=== PATIENT | male | born 1980 | race Caucasian/White ===

== ENCOUNTER 2021-08-08 16:59 | Emergency (ER) | payer OTHER, SELFPAY ==
--- NOTE | ~2021-08-08 | US_ITS ---
EXAMINATION: US VENOUS WITH DOPPLER UPPER EXTREMITY, LEFT CLINICAL INFORMATION: Swelling. Abscess. COMPARISON: None TECHNIQUE: Ultrasound of the upper extremity is performed using compression sonography and color and pulse Doppler flow with assessment of augmentation of flow. There is also imaging and Doppler assessment of the jugular and subclavian veins. Spectral analysis with color-flow imaging is performed. FINDINGS: Respiratory variation, normal compression, and augmented flow are noted throughout the upper extremity including the axillary, brachial, cubital, and radial and ulnar veins. There is normal flow in the internal jugular and subclavian veins. There is no visible deep or superficial thrombophlebitis. If the patient's symptoms progress, a followup ultrasound in 5 -7 days might be of value to exclude proximal propagation from a nonvisualized distal arm vein. US/US venous duplex UE LT IMPRESSION: No DVT demonstrated in the left upper extremity. There is no abnormality seen in the area of redness.
--- NOTE | ~2021-08-08 | US_ITS ---
EXAMINATION: US VENOUS ULTRASOUND WITH DOPPLER LOWER EXTREMITY, RIGHT CLINICAL INFORMATION: Right lower extremity swelling. COMPARISON: None. TECHNIQUE: Ultrasound of the deep veins is performed from the hip to the calf with compression sonography and color and pulse Doppler assessment. Spectral analysis with color-flow imaging is performed. FINDINGS: The visualized common femoral vein, superficial femoral vein, profunda femoral vein, popliteal vein, and the trifurcation region shows no evidence of deep venous thrombosis. The patient could not tolerate pain in the right inguinal region and compressibility of the common femoral vein and origin of the great saphenous vein was not assessed. However, these veins are patent on color Doppler. Similarly, the compressibility of the distal right femoral vein was not assessed however it is patent on color Doppler. There is no significant popliteal fossa cyst. If the patient's symptoms persist, followup ultrasound in 5 days 7 days might be of value to exclude proximal propagation from a non-visualized calf vein. US/US venous duplex LE RT IMPRESSION: No DVT demonstrated in the right lower extremity with the caveat of some limitations when evaluating compressibility due to patient's pain as above.
[2021-08-08 17:21] VITALS: BP 140/95; PULSE 98; RESP 20; TEMP 36.3; O2SAT 100; BMI 37.6
--- NOTE | 2021-08-08 17:45 | ED.SKABFB ---
HPI - Skin/Abscess/Foreign Bdy General Chief complaint: Skin/Abscess/Foreign Body Stated complaint: abscess on L bicep Time Seen by Provider: 08/08/21 17:35 Source: patient Mode of arrival: ambulatory Limitations: no limitations History of Present Illness HPI narrative: 40-year-old male past medical history significant for cocaine use disorder (IV) presenting to the emergency department concerns of an abscess to the left arm progressively worsening over the past week, and pain and swelling to the right lower extremity x1 week. Patient tell me that where the abscess is on his left upper extremity he has not shot. He tells me he uses clean needles each time. Also reports pain and swelling to the right lower extremity, progressively worsening, he tells me has shot up a few times in his right lower extremity however not at the site where it hurts. Patient denies fevers, chills, nausea, vomiting, chest pain, shortness of breath, weakness, headache, dizziness. No history of MRSA MD complaint: abscess/boil Onset (ago): week(s) (1) Tetanus up to date: unsure Location: LUE and RLE Severity: severe Quality: constant Pain Consistency: constant Relieving factors: none Exacerbating factors: none Context: none Associated symptoms: denies other symptoms Treatments prior to arrival: none Related Data Previous Rx's Medication Instructions Recorded cephalexin 500 mg tablet 500 mg PO Q6H 10 Days #40 tab 08/08/21 doxycycline hyclate 100 mg capsule 100 mg PO BID 10 Days #20 cap 08/08/21 Allergies Allergy/AdvReac Type Severity Reaction Status Date / Time No Known Allergies Allergy Verified 08/08/21 17:21 Review of Systems Review of Systems: Constitutional : No Fever, No Chills, Cardiovascular : No Chest Pain, No SOB Respiratory : No Dyspnea Gastrointestinal : No abdominal pain Musculoskeletal : No Joint Swelling Skin : No rash, No skin laceration, + abcess Neuro : No Weakness, No Numbness Psych : No SI/HI Yes all other systems are reviewed and are negative PMFSH Past Medical History Attestation statement: The following information was validated with the patient. Source: old records reviewed and nursing notes reviewed Social History Social History Advance Directives: No Advance Directives Information Provided: No Physical Exam Vital Signs: Vital Signs: Last Vital Signs Temp 97.4 F 08/08/21 17:21 Pulse 98 08/08/21 17:21 Resp 20 08/08/21 17:21 BP 140/95 H 08/08/21 17:21 Pulse Ox 100 08/08/21 17:21 BMI result Body Mass Index 37.6 VSS Appearance: Alert.? Oriented X3.? No acute distress.? Head: Normocephalic, atraumatic, no step-offs or deformities Eyes: Pupils equal, round and reactive to light.? ENT: Pharynx normal.? Neck: Normal inspection.? Neck supple.? CVS: Normal heart rate and rhythm.? Pulses normal.? Respiratory: No respiratory distress.? Breath sounds normal.? Abdomen: Soft and nontender.? Skin: Skin warm and dry.? Normal skin color.? Normal skin turgor.?+ abcess to LUE Extremities: + 3+ non pitting edema b/l. . No calf ttp, negative cali b/l. 5/5 strength to bilateral upper and lower extremities Back: No midline tenderness, no C-spine tenderness, full range of motion, no CVA tenderness bilaterally Neuro: Oriented X 3.? No motor deficit.? No sensory deficit. Course Reevaluation(s) Reevaluation #1: CBC within normal limits. No acute electrolyte abnormalities. Lactic acid negative. Ethanol negative. COVID negative. Ultrasound pending. Patient has been continuously going to the bathroom for long periods of time throughout his visit. Time: 19:40 Reevaluation #2: Venous duplex of the right lower extremity with no DVT. Patient's study was limited due to patient not tolerating pain however it did appear to be patent with out DVT and normal on color Doppler. Of patient's symptoms persist he should have a follow-up ultrasound in 5-7 days. A bedside incision and drainage was done using an 11 blade. The area was thoroughly cleaned, site and patient were confirmed. Patient gave verbal consent. 2% lidocaine was used to anesthetize the area about 12 cc. A linear incision was made and about 20 cc of purulence discharge were expressed from the area. There is about 4-6 cm of packing placed into the incision, patient advised to return in 2-4 days for packing removal. Advised patient on recent signs and symptoms. Send antibiotics to the pharmacy to cover for MRSA. Advised him to come for a wound check. Comfortable with discharge home with PCP follow-up. Time: 21:11 MDM - Skin/Abscess/Foreign Bdy MDM Narrative Medical decision making narrative: 1803 40 yo m pmhx cocaine use d/o (IV) presents w/ abcess to LUE and RLE swelling and pain PE significant for 3+ b/l nonpitting edema and abcess to LUE. Plan- US and I&D. Medical Records Attestation: I reviewed the patient's medical records. Lab Data Attestation: I reviewed the patient's lab results. Result diagrams: 08/08/21 18:08 08/08/21 18:08 Labs: Lab Results 08/08/21 08/08/21 08/08/21 Range/Units 18:08 18:08 18:08 WBC 9.5 (4.8-10.8) X10*3/uL RBC 3.94 L (4.60-5.80) X10*6/uL Hgb 11.9 L (14.0-18.0) g/dl Hct 35.5 L (42.0-52.0) % MCV 90.1 (80.0-98.0) fL MCH 30.2 (27.0-33.0) pg MCHC 33.5 (31.0-36.0) g/dl RDW 13.0 (11.0-16.0) % Plt Count 415 H (160-400) X10*3/uL MPV 9.6 (9.4-12.4) fL Immature Gran % (Auto) 1.0 H (0.0-0.4) % Neut % (Auto) 72.2 (45-73) % Lymph % (Auto) 20.2 (20-40) % [place] % (Auto) 5.4 (2-11) % Eos % (Auto) 0.8 (0-4) % Baso % (Auto) 0.4 (0-2) % Lymph # (Auto) 1.9 (1.2-4.9) X10*3/uL [place] # (Auto) 0.5 (0.1-1.2) X10*3/uL Eos # (Auto) 0.1 (0.0-0.4) X10*3/uL Baso # (Auto) 0.0 (0.0-0.2) X10*3/uL Abs Immat Gran (auto) 0.09 H (0.00-0.03) X10*3/uL Absolute Neuts (auto) 6.8 (2.0-8.3) x10*3/uL Absolute Nucleated RBC 0.000 (0.0-0.012) X10*3/uL Nucleated RBC % (auto) 0.0 (0.0-0.2) /100WBC Sodium 137 (135-145) mmol/L Potassium 3.0 L (3.3-5.1) mmol/L Chloride 99 (96-108) mmol/L Carbon Dioxide 29 (22-29) mmol/L Anion Gap 12 (12-20) BUN 11 (9-16) mg/dL Creatinine 0.68 (0.5-1.4) mg/dL Estim Creat Clear Calc 190.4 Estimated GFR > 60 Random Glucose 102 (60-115) mg/dL Lactic Acid (0.5-2.0) mmol/L Calcium 9.1 (8.4-10.2) mg/dL Ethyl Alcohol mg/dL COVID-19 (RANDI) Negative (Negative) COVID-19 Clin Com See Note 08/08/21 08/08/21 Range/Units 18:08 18:08 WBC (4.8-10.8) X10*3/uL RBC (4.60-5.80) X10*6/uL Hgb (14.0-18.0) g/dl Hct (42.0-52.0) % MCV (80.0-98.0) fL MCH (27.0-33.0) pg MCHC (31.0-36.0) g/dl RDW (11.0-16.0) % Plt Count (160-400) X10*3/uL MPV (9.4-12.4) fL Immature Gran % (Auto) (0.0-0.4) % Neut % (Auto) (45-73) % Lymph % (Auto) (20-40) % [place] % (Auto) (2-11) % Eos % (Auto) (0-4) % Baso % (Auto) (0-2) % Lymph # (Auto) (1.2-4.9) X10*3/uL [place] # (Auto) (0.1-1.2) X10*3/uL Eos # (Auto) (0.0-0.4) X10*3/uL Baso # (Auto) (0.0-0.2) X10*3/uL Abs Immat Gran (auto) (0.00-0.03) X10*3/uL Absolute Neuts (auto) (2.0-8.3) x10*3/uL Absolute Nucleated RBC (0.0-0.012) X10*3/uL Nucleated RBC % (auto) (0.0-0.2) /100WBC Sodium (135-145) mmol/L Potassium (3.3-5.1) mmol/L Chloride (96-108) mmol/L Carbon Dioxide (22-29) mmol/L Anion Gap (12-20) BUN (9-16) mg/dL Creatinine (0.5-1.4) mg/dL Estim Creat Clear Calc Estimated GFR Random Glucose (60-115) mg/dL Lactic Acid 1.3 (0.5-2.0) mmol/L Calcium (8.4-10.2) mg/dL Ethyl Alcohol < 10 mg/dL COVID-19 (RANDI) (Negative) COVID-19 Clin Com Procedures Abscess I/D Site: upper extremity Side (if applicable): left Local Anesthetic: lidocaine 2% Amount of anesthesia used (mL): 12 Technique: incised with blade Amount of fluid expressed (mL): 20 Sent for culture/gram staining?: Yes Irrigation: Yes Packing used?: plain Critical Care Time Critical Care Time Critical Care Time: No Discharge Plan Discharge Clinical Impression: Abscess of skin or subcutaneous tissue, Leg pain, right Patient Disposition: Home, Self-Care Instructions: Abscess (ED), Leg Pain (ED), Abscess Incision and Drainage (DC), Incision and Drainage (ED) Additional Instructions: Take your medications as prescribed. If you were prescribed antibiotics today, it is important that you take your medication to their entirety, do not skip any doses, do not finish them early. Follow-up with your primary care provider this week. Return to the emergency department with new or worsening symptoms. Such as worsening pain, shortness of breath, chest pain, fevers, chills, nausea, vomiting, discharge from the site, worsening redness. In case of emergency call 911 If you are still having pain to right lower extremity I suggest to have a follow-up ultrasound in 5-7 days to rule out clots. Return in 2-4 days for packing removal Prescriptions: New doxycycline hyclate 100 mg capsule 100 mg PO BID 10 Days Qty: 20 0RF cephalexin 500 mg tablet 500 mg PO Q6H 10 Days Qty: 40 0RF Referrals: Physician,None [Primary Care Provider] - 2 days Stand Alone Forms: Work/School Release Interventions: ED Discharge Assessment Last Done: 08/08/21 20:58 Discharge Date/Time: 08/08/21 21:00
[2021-08-08 18:13] LABS: MANUAL DIFF FLAG NO
[2021-08-08 18:16] LABS: Basophils Percent Auto 0.4 % (0-2); Eosinophils Absolute Auto 0.1 X10*3/uL (0.0-0.4); Eosinophils Percent Auto 0.8 % (0-4); Hematocrit 35.5 % (42.0-52.0); Hemoglobin 11.9 g/dl (14.0-18.0); Imm Gran Abs Auto 0.09 X10*3/uL (0.00-0.03); Lymphocytes Absolute Auto 1.9 X10*3/uL (1.2-4.9); Lymphocytes Percent Auto 20.2 % (20-40); Mean Corpuscular HGB Conc 33.5 g/dl (31.0-36.0); Mean Corpuscular Hemoglobin 30.2 pg (27.0-33.0); Mean Corpuscular Volume 90.1 fL (80.0-98.0); Mean Platelet Volume 9.6 fL (9.4-12.4); Monocytes Absolute Auto 0.5 X10*3/uL (0.1-1.2); Monocytes Percent Auto 5.4 % (2-11); Neutrophils Absolute Auto 6.8 x10*3/uL (2.0-8.3); Neutrophils Percent Auto 72.2 % (45-73); Platelet Count 415 X10*3/uL (160-400); Red Blood Count 3.94 X10*6/uL (4.60-5.80); White Blood Count 9.5 X10*3/uL (4.8-10.8)
[2021-08-08 18:24] LABS: Lactic Acid 1.3 mmol/L (0.5-2.0)
[2021-08-08 18:27] LABS: Anion Gap 12 (12-20); Blood Urea Nitrogen 11 mg/dL (9-16); Calcium 9.1 mg/dL (8.4-10.2); Carbon Dioxide 29 mmol/L (22-29); Chloride 99 mmol/L (96-108); Creatinine Clr Calc Pharmacy 190.4; Estimated Glomerular Filt Rate > 60; Glucose Random 102 mg/dL (60-115); Sodium 137 mmol/L (135-145)
[2021-08-08 18:31] LABS: COVID-19 Test Negative (Negative)
[2021-08-08 18:34] LABS: Ethanol < 10 mg/dL
[2021-08-08] MEDS: Potassium Chloride ER 20 MEQ TAB.ER.PRT 40 MEQ PO (19:51)
[2021-08-08] MEDS: Lidocaine HCl 2 % MPF 5 ML VIAL SUBCUT ×3 (19:51→19:52)
== END 2021-08-08 21:00 | disposition home or self-care (01) ==
PROVIDERS: Physician Assistant; Emergency Provider Emergency Medicine
DX: L02.414 Cutaneous abscess of left upper limb (principal); M79.661 Pain in right lower leg; R60.0 Localized edema; Z20.822 Contact with and (suspected) exposure to COVID-19; F19.10 Other psychoactive substance abuse, uncomplicated; I10 Essential (primary) hypertension
CPT/HCPCS: 10060; 36415; 80048; 82077; 83605; 85025; 87040; 87071; 87186; 87205; 87635; 93971; 99284

== ENCOUNTER 2021-08-12 17:39 | Inpatient (IN) | payer OTHER, SELFPAY ==
--- NOTE | ~2021-08-12 | XR_ITS ---
EXAMINATION: XR FOREARM, RIGHT X-RAY WRIST, RIGHT CLINICAL INFORMATION: IV drug use. Swelling and redness. Evaluate for osteomyelitis. COMPARISON: None. TECHNIQUE: AP and lateral views of the right forearm were obtained. PA, oblique, lateral views of the right wrist were obtained. FINDINGS: Extensive soft tissue swelling without unexpected radiopaque foreign bodies. No cortical disruptions or erosions to suspect osteomyelitis. No acute fractures or malalignment. XR/XR hand wrist RT IMPRESSION: Extensive soft tissue swelling. No cortical disruptions or erosions to suspect osteomyelitis. If indicated, a follow-up study could be obtained as early osteolyses can be radiographically occult. As well, correlation with an MR could be obtained if indicated.
--- NOTE | ~2021-08-12 | XR_ITS ---
EXAMINATION: XR FOOT, RIGHT CLINICAL INFORMATION: Foot cellulitis. COMPARISON: None TECHNIQUE: AP, lateral, and oblique views of the right foot. FINDINGS: . There is a moderate size calcaneal heel enthesophyte. The ankle mortise and subtalar joints are normal. No visible acute fracture or dislocation seen. The joint spaces are maintained normal. There is moderate distal dorsal soft tissue swelling. XR/XR foot RT 2V IMPRESSION: Moderate size calcaneal heel enthesophyte. Moderate size dorsal foot soft tissue swelling. No acute fracture or dislocation.
--- NOTE | ~2021-08-12 | XR_ITS ---
EXAMINATION: XR FOREARM, LEFT X-RAY WRIST, LEFT CLINICAL INFORMATION: Swelling. IV drug use. Evaluate for osteomyelitis. COMPARISON: None TECHNIQUE: AP and lateral views of the left forearm were obtained. PA, oblique and lateral views of the left wrist were obtained. FINDINGS: Left forearm: Extensive soft tissue swelling. No radiopaque foreign bodies. No cortical disruption or erosive changes to suspect osteomyelitis. No acute fractures or malalignment. Left wrist: As above, there is extensive soft tissue swelling. No radiopaque foreign bodies. No radiographic evidence of osteomyelitis. No acute fractures or malalignment. XR/XR forearm LT 2V IMPRESSION: Extensive soft tissue swelling. No cortical disruptions or erosions to suspect osteomyelitis. If indicated, a follow-up study could be obtained as early osteomyelitis can be radiographically occult. As well, correlation with an MR could be obtained if indicated.
--- NOTE | ~2021-08-12 | US_ITS ---
EXAMINATION: US VENOUS WITH DOPPLER UPPER EXTREMITY, BILATERAL CLINICAL INFORMATION: Edema. Swelling. COMPARISON: None TECHNIQUE: Ultrasound of the upper extremity is performed using compression sonography and color and pulse Doppler flow with assessment of augmentation of flow. There is also imaging and Doppler assessment of the jugular and subclavian veins. Spectral analysis with color-flow imaging is performed. FINDINGS: Respiratory variation, normal compression, and augmented flow are noted throughout the upper extremity including the axillary, brachial, cubital, and radial and ulnar veins. There is normal flow in the internal jugular and subclavian veins. There is no visible deep or superficial thrombophlebitis. If the patient's symptoms progress, a followup ultrasound in 5 -7 days might be of value to exclude proximal propagation from a nonvisualized distal arm vein. US/US venous duplex UE BI IMPRESSION: No DVT demonstrated in the bilateral upper extremities.
--- NOTE | ~2021-08-12 | XR_ITS ---
EXAMINATION: XR FOREARM, RIGHT X-RAY WRIST, RIGHT CLINICAL INFORMATION: IV drug use. Swelling and redness. Evaluate for osteomyelitis. COMPARISON: None. TECHNIQUE: AP and lateral views of the right forearm were obtained. PA, oblique, lateral views of the right wrist were obtained. FINDINGS: Extensive soft tissue swelling without unexpected radiopaque foreign bodies. No cortical disruptions or erosions to suspect osteomyelitis. No acute fractures or malalignment. XR/XR forearm RT 2V IMPRESSION: Extensive soft tissue swelling. No cortical disruptions or erosions to suspect osteomyelitis. If indicated, a follow-up study could be obtained as early osteolyses can be radiographically occult. As well, correlation with an MR could be obtained if indicated.
--- NOTE | ~2021-08-12 | XR_ITS ---
EXAMINATION: XR FOREARM, LEFT X-RAY WRIST, LEFT CLINICAL INFORMATION: Swelling. IV drug use. Evaluate for osteomyelitis. COMPARISON: None TECHNIQUE: AP and lateral views of the left forearm were obtained. PA, oblique and lateral views of the left wrist were obtained. FINDINGS: Left forearm: Extensive soft tissue swelling. No radiopaque foreign bodies. No cortical disruption or erosive changes to suspect osteomyelitis. No acute fractures or malalignment. Left wrist: As above, there is extensive soft tissue swelling. No radiopaque foreign bodies. No radiographic evidence of osteomyelitis. No acute fractures or malalignment. XR/XR hand wrist LT IMPRESSION: Extensive soft tissue swelling. No cortical disruptions or erosions to suspect osteomyelitis. If indicated, a follow-up study could be obtained as early osteomyelitis can be radiographically occult. As well, correlation with an MR could be obtained if indicated.
[2021-08-12 18:10] VITALS: BP 190/100; PULSE 96; RESP 20; TEMP 36.9; O2SAT 97; BMI 34.4
--- NOTE | 2021-08-12 20:00 | PC.NURSE ---
Pt called multiple times @ 1999, not in [place]. Security looking outside for pt, unable to locate pt @ this time.
[2021-08-12 22:00] VITALS: BP 129/84; PULSE 87; RESP 18; TEMP 37.3; O2SAT 95
[2021-08-12 22:26] LABS: MANUAL DIFF FLAG NO
[2021-08-12 22:30] LABS: Basophils Absolute Auto 0.1 X10*3/uL (0.0-0.2); Basophils Percent Auto 0.8 % (0-2); Eosinophils Absolute Auto 0.1 X10*3/uL (0.0-0.4); Hematocrit 37.1 % (42.0-52.0); Imm Gran Abs Auto 0.05 X10*3/uL (0.00-0.03); Imm Gran Pct Auto 0.5 % (0.0-0.4); Lymphocytes Absolute Auto 2.2 X10*3/uL (1.2-4.9); Lymphocytes Percent Auto 21.9 % (20-40); Mean Corpuscular HGB Conc 32.3 g/dl (31.0-36.0); Mean Corpuscular Hemoglobin 30.2 pg (27.0-33.0); Mean Corpuscular Volume 93.5 fL (80.0-98.0); Mean Platelet Volume 9.8 fL (9.4-12.4); Monocytes Absolute Auto 0.5 X10*3/uL (0.1-1.2); Neutrophils Percent Auto 70.8 % (45-73); PLT CLUMP 1; Red Blood Count 3.97 X10*6/uL (4.60-5.80); Red Cell Distribution Width 13.2 % (11.0-16.0); SCAN SMEAR FLAG 1
[2021-08-12] MEDS: 0.9 % Sodium Chloride 1,000 ML 999 ML IV (22:35)
[2021-08-12 22:47] LABS: INTERNATIONAL NORM RATIO 1.2 (0.9-1.1); Prothrombin Time 14.1 SEC (9.9-13.0)
[2021-08-12 22:48] LABS: Alanine Aminotransferase 22 U/L (0-40); Albumin Level 3.6 g/dL (3.5-5.0); Alkaline Phosphatase 96 U/L (39-117); Anion Gap 17 (12-20); Aspartate Amino Transferase 26 U/L (5-37); Bilirubin Total 0.4 mg/dL (0.0-1.0); Blood Urea Nitrogen 9 mg/dL (9-16); C Reactive Protein 5.71 mg/dL (< or = 0.50); Calcium 9.4 mg/dL (8.4-10.2); Carbon Dioxide 23 mmol/L (22-29); Chloride 101 mmol/L (96-108); Creatinine Clr Calc Pharmacy 155.9; Estimated Glomerular Filt Rate > 60; Glucose Random 84 mg/dL (60-115); Platelet Count 428 X10*3/uL (160-400); Potassium 4.6 mmol/L (3.3-5.1); Sodium 136 mmol/L (135-145); Total Protein 8.4 g/dL (6.5-8.0); White Blood Count 9.9 X10*3/uL (4.8-10.8)
[2021-08-12 22:49] LABS: Partial Thromboplastin Time 49.1 SEC (24.1-38.0)
[2021-08-12 22:50] LABS: Lactic Acid 1.4 mmol/L (0.5-2.0)
[2021-08-12 23:18] LABS: Erythrocyte Sedimentation Rate 82 MM/HR (0-15)
--- NOTE | 2021-08-12 23:20 | PC.NURSE ---
Assumed care of pt at 2300. Pt resting and in NAD, even and non-labored respirations. IV fluids infusing. Dispo TBD
--- NOTE | 2021-08-12 23:33 | ED_ITS ---
HPI - General Adult General Chief complaint: Skin/Abscess/Foreign Body Stated complaint: abcess left arm Time Seen by Provider: 08/12/21 18:49 Source: patient Mode of arrival: ambulatory Limitations: no limitations History of Present Illness HPI narrative: 40-year-old male heavy drug user presents to ED for worsening bilateral upper extremity cellulitis. Patient was seen last week for left biceps abscess but admits to shooting drugs and now both extremity forearm a red swollen and weeping discharge. Patient states he has been complying with Keflex and doxycycline. Patient return to the ED for re-evaluation. Patient states he injects cocaine into his extremities. Related Data Home Medications Medication Instructions Recorded Confirmed omeprazole 20 mg capsule,delayed 20 mg PO DAILY 08/13/21 08/13/21 release propranolol 20 mg tablet 1 tab PO BEDTIME 08/13/21 08/13/21 Allergies Allergy/AdvReac Type Severity Reaction Status Date / Time No Known Allergies Allergy Verified 08/08/21 17:21 Review of Systems Review of Systems: IV drug use. Bilateral upper extremity swelling and redness. Yes all other systems are reviewed and are negative [facility] Social History Social History Use of substances other than those prescribed or required for medical reasons: Yes Advance Directives: No Advance Directives Information Provided: Yes Physical Exam ED Vital Signs: Vital Signs - 24 hr 08/12/21 18:10 08/12/21 22:00 08/13/21 00:16 Temperature 98.5 F 99.1 F 98.9 F Pulse Rate 96 87 78 Respiratory Rate 20 18 16 Blood Pressure 190/100 H 129/84 151/95 H Pulse Oximetry 97 95 97 BMI result Body Mass Index 34.4 Const General: cooperative, healthy appearing, comfortable, no acute distress, well developed, alert, awake and Physically active [facility] Head: Yes normal to inspection, Yes No palpable skull fracture present, Yes normocephalic, Yes atraumatic and No abrasion Eyes General: appearance normal, both eyes and all related structures Neck Neck: Yes normal visual inspection, Yes full ROM and Yes no lymphadenopathy Extrem Other: Bilateral upper extremity abscesses. Motor/nose/vascular exam of bilateral upper extremity intact Psych Appearance: grossly normal, well kempt and not disheveled Course Course Course Narrative: Patient sent for labs, bilateral upper extremity ultrasound, and bilateral upper extremity x-rays. Likely acid blood culture ordered. Reevaluation(s) Reevaluation #1: Vital signs negative for sepsis. Negative for elevated white blood cell, patient elevates CRP and ESR. Images negative for osteomyelitis or DVT. Patient presents Keflex and doxycycline with worsening cellulitis will be admit bartolo. Hospitalist accepted case Time: 12:51 Medical Decision Making MDM Narrative Medical decision making narrative: Bilateral cellulitis Lab Data Result diagrams: 08/12/21 22:20 08/12/21 22:20 Labs: Lab Results 08/12/21 08/12/21 08/12/21 Range/Units 22:20 22:20 22:35 WBC 9.9 (4.8-10.8) X10*3/uL RBC 3.97 L (4.60-5.80) X10*6/uL Hgb 12.0 L (14.0-18.0) g/dl Hct 37.1 L (42.0-52.0) % MCV 93.5 (80.0-98.0) fL MCH 30.2 (27.0-33.0) pg MCHC 32.3 (31.0-36.0) g/dl RDW 13.2 (11.0-16.0) % Plt Count 428 H (160-400) X10*3/uL MPV 9.8 (9.4-12.4) fL Immature Gran % (Auto) 0.5 H (0.0-0.4) % Neut % (Auto) 70.8 (45-73) % Lymph % (Auto) 21.9 (20-40) % [place] % (Auto) 5.0 (2-11) % Eos % (Auto) 1.0 (0-4) % Baso % (Auto) 0.8 (0-2) % Lymph # (Auto) 2.2 (1.2-4.9) X10*3/uL [place] # (Auto) 0.5 (0.1-1.2) X10*3/uL Eos # (Auto) 0.1 (0.0-0.4) X10*3/uL Baso # (Auto) 0.1 (0.0-0.2) X10*3/uL Abs Immat Gran (auto) 0.05 H (0.00-0.03) X10*3/uL Absolute Neuts (auto) 7.0 (2.0-8.3) x10*3/uL Absolute Nucleated RBC 0.000 (0.0-0.012) X10*3/uL Nucleated RBC % (auto) 0.0 (0.0-0.2) /100WBC ESR 82 H (0-15) MM/HR PT (9.9-13.0) SEC INR (0.9-1.1) APTT (24.1-38.0) SEC Sodium 136 (135-145) mmol/L Potassium 4.6 D (3.3-5.1) mmol/L Chloride 101 (96-108) mmol/L Carbon Dioxide 23 (22-29) mmol/L Anion Gap 17 (12-20) BUN 9 (9-16) mg/dL Creatinine 0.77 (0.5-1.4) mg/dL Estim Creat Clear Calc 155.9 Estimated GFR > 60 Random Glucose 84 (60-115) mg/dL Lactic Acid (0.5-2.0) mmol/L Calcium 9.4 (8.4-10.2) mg/dL Total Bilirubin 0.4 (0.0-1.0) mg/dL AST 26 (5-37) U/L ALT 22 (0-40) U/L Alkaline Phosphatase 96 (39-117) U/L C-Reactive Protein 5.71 H (< or = 0.50) mg/dL Total Protein 8.4 H (6.5-8.0) g/dL Albumin 3.6 (3.5-5.0) g/dL COVID-19 (RANDI) (Negative) COVID-19 Clin Com 08/12/21 08/12/21 08/13/21 Range/Units 22:35 22:35 00:12 WBC (4.8-10.8) X10*3/uL RBC (4.60-5.80) X10*6/uL Hgb (14.0-18.0) g/dl Hct (42.0-52.0) % MCV (80.0-98.0) fL MCH (27.0-33.0) pg MCHC (31.0-36.0) g/dl RDW (11.0-16.0) % Plt Count (160-400) X10*3/uL MPV (9.4-12.4) fL Immature Gran % (Auto) (0.0-0.4) % Neut % (Auto) (45-73) % Lymph % (Auto) (20-40) % [place] % (Auto) (2-11) % Eos % (Auto) (0-4) % Baso % (Auto) (0-2) % Lymph # (Auto) (1.2-4.9) X10*3/uL [place] # (Auto) (0.1-1.2) X10*3/uL Eos # (Auto) (0.0-0.4) X10*3/uL Baso # (Auto) (0.0-0.2) X10*3/uL Abs Immat Gran (auto) (0.00-0.03) X10*3/uL Absolute Neuts (auto) (2.0-8.3) x10*3/uL Absolute Nucleated RBC (0.0-0.012) X10*3/uL Nucleated RBC % (auto) (0.0-0.2) /100WBC ESR (0-15) MM/HR PT 14.1 H (9.9-13.0) SEC INR 1.2 H (0.9-1.1) APTT 49.1 H (24.1-38.0) SEC Sodium (135-145) mmol/L Potassium (3.3-5.1) mmol/L Chloride (96-108) mmol/L Carbon Dioxide (22-29) mmol/L Anion Gap (12-20) BUN (9-16) mg/dL Creatinine (0.5-1.4) mg/dL Estim Creat Clear Calc Estimated GFR Random Glucose (60-115) mg/dL Lactic Acid 1.4 (0.5-2.0) mmol/L Calcium (8.4-10.2) mg/dL Total Bilirubin (0.0-1.0) mg/dL AST (5-37) U/L ALT (0-40) U/L Alkaline Phosphatase (39-117) U/L C-Reactive Protein (< or = 0.50) mg/dL Total Protein (6.5-8.0) g/dL Albumin (3.5-5.0) g/dL COVID-19 (RANDI) Negative (Negative) COVID-19 Clin Com See Note Discharge Plan Discharge Clinical Impression: Cellulitis Patient Disposition: Admitted As Inpatient
[2021-08-13 00:16] VITALS: BP 151/95; PULSE 78; RESP 16; TEMP 37.2; O2SAT 97
[2021-08-13] MEDS: Piperacillin Sodium/Tazobactam 3.375 GM in 0.9 % Sodium Chloride 50 ML IV ×4 (00:34→21:00)
[2021-08-13 00:43] LABS: COVID-19 Test Negative (Negative)
--- NOTE | 2021-08-13 01:00 | P.HPHOSP_ITS ---
History of Present Illness Date of Service: 08/13/21 Chief Complaint: skin infection 40-year-old male with past medical history of IV drug use, as well as hypertension presents to the hospital with multiple skin infections on his arms. Patient reports that he injects crack cocaine on his right and left arm and n oticed scabs and skin break age that was not healing and worsening over the past 1 week worsening over the past 3 days. Patient reports drainage from multiple scabs on his left arm. He is also complaining of worsening swelling, redness, and pain. Patient reports that he has injected cocaine in that area in the past. With minimal injection of heroin. He denies any fever or chills, no chest pain, no shortness of breath, no abdominal pain nausea or vomiting, no diarrhea constipation, no urinary symptoms and no lower extremity edema. On arrival to the ED patient hemodynamically stable with no significant abnormal vitals. Labs are significant for WBC count of 9.9, hemoglobin of 12, hematocrit 37.1, platelets of 428, PT of 14, INR of 1.2, PTT of 49, CRP of 5.7, COVID-19 negative Patient underwent venous duplex studies which showed no DVT in the bilateral upper extremities. He underwent multiple x-rays of the hand wrist, forearm bilaterally which showed extensive soft tissue swelling. patient started on IV antibiotics and will be admitted for further management Review of Systems Review of Systems: Yes all other systems are reviewed and are negative [facility] Medical History (Updated 08/13/21 @ 06:56 by Annika Nieto MD) Hypertension Polysubstance abuse Family History (Updated 08/13/21 @ 06:52 by Annika Nieto MD) Other No family history of coronary artery disease Surgical History (Updated 08/13/21 @ 06:53 by Annika Nieto MD) No pertinent past surgical history Social History (Updated 08/13/21 @ 06:54 by Annika Nieto MD) Alcohol intake: current Patient Tobacco Use Status: Current everyday Tobacco user Tobacco use type: Cigarette Cigarette Packs Per Day: 0.5 Use of substances other than those prescribed or required for medical reasons: Yes Substance Use Type: Crack/Cocaine and Heroin Advance Directives: No Advance Directives Information Provided: Yes Meds Allergies Allergy/AdvReac Type Severity Reaction Status Date / Time No Known Allergies Allergy Verified 08/08/21 17:21 Active Medications: Current Medications Omeprazole (Omeprazole 20 Mg Capsule.) 20 mg PO DAILY [facility]GG Propranolol HCl (Propranolol Hcl 20 Mg Tablet) 20 mg PO BEDTIME GREGG; Protocol Home Medications Medication Instructions Recorded Confirmed Last Taken Type omeprazole 20 mg capsule,delayed 20 mg PO DAILY 08/13/21 08/13/21 Unknown History release propranolol 20 mg tablet 1 tab PO BEDTIME 08/13/21 08/13/21 Unknown History Physical Exam Vital Signs and Narrative: Vital Signs: Last Vital Signs Temp 98.9 F 08/13/21 00:16 Pulse 78 08/13/21 00:16 Resp 16 08/13/21 00:16 BP 151/95 H 08/13/21 00:16 Pulse Ox 97 08/13/21 00:16 BMI result Body Mass Index 34.4 Const: General: cooperative and no acute distress Orien tation/consciousness: patient oriented x3 Eyes: General: appearance normal, both eyes and all related structures Pupils: Equal, round and reactive pupils present Resp: Effort & Inspection: normal respiratory effort Auscultation: clear to auscultation bilaterally Cardio: Rate: regular rate Rhythm: regular rhythm GI: Palpation (GI): Soft to palpation Auscultation: normal bowel sounds Skin: Other: bilateral erythema, warmth, Whipple ulcers better draining on the left hand, purulent discharge Neuro: General: patient oriented x3 Cranial nerves: Yes Equal, round and reactive pupils present Cognition (Neuro): normal cognition Extrem: Other: multiple open ulcers on the left hand, mucopurulent discharge Results Labs CBC and Chem 7: 08/12/21 22:20 08/12/21 22:20 Labs: Laboratory Results - last 24 hr 08/12/21 08/12/21 08/12/21 22:20 22:20 22:35 MCV 93.5 MCH 30.2 MCHC 32.3 RDW 13.2 Plt Count 428 H MPV 9.8 Immature Gran % (Auto) 0.5 H Neut % (Auto) 70.8 Lymph % (Auto) 21.9 [place] % (Auto) 5.0 Eos % (Auto) 1.0 Baso % (Auto) 0.8 Lymph # (Auto) 2.2 [place] # (Auto) 0.5 Eos # (Auto) 0.1 Baso # (Auto) 0.1 Abs Immat Gran (auto) 0.05 H Absolute Neuts (auto) 7.0 Absolute Nucleated RBC 0.000 Nucleated RBC % (auto) 0.0 ESR 82 H PT INR APTT Anion Gap 17 Estim Creat Clear Calc 155.9 Estimated GFR > 60 Random Glucose 84 Lactic Acid Calcium 9.4 Total Bilirubin 0.4 AST 26 ALT 22 Alkaline Phosphatase 96 C-Reactive Protein 5.71 H Total Protein 8.4 H Albumin 3.6 COVID-19 ([facility]I) COVID-19 Clin Com 08/12/21 08/12/21 08/13/21 22:35 22:35 00:12 MCV MCH MCHC RDW Plt Count MPV Immature Gran % (Auto) Neut % (Auto) Lymph % (Auto) [place] % (Auto) Eos % (Auto) Baso % (Auto) Lymph # (Auto) [place] # (Auto) Eos # (Auto) Baso # (Auto) Abs Immat Gran (auto) Absolute Neuts (auto) Absolute Nucleated RBC Nucleated RBC % (auto) ESR PT 14.1 H INR 1.2 H APTT 49.1 H Anion Gap Estim Creat Clear Calc Estimated GFR Random Glucose Lactic Acid 1.4 Calcium Total Bilirubin AST ALT Alkaline Phosphatase C-Reactive Protein Total Protein Albumin COVID-19 ([facility]ANDI) Negative COVID-19 Clin Com See Note Imaging Radiologist's Impressions: Impressions Forearm X-Ray 08/12/21 21:16 IMPRESSION: Extensive soft tissue swelling. No cortical disruptions or erosions to suspect osteomyelitis. If indicated, a follow-up study could be obtained as early osteolyses can be radiographically occult. As well, correlation with an MR could be obtained if indicated. Forearm X-Ray 08/12/21 21:16 IMPRESSION: Extensive soft tissue swelling. No cortical disruptions or erosions to suspect osteomyelitis. If indicated, a follow-up study could be obtained as early osteomyelitis can be radiographically occult. As well, correlation with an MR could be obtained if indicated. Hand/Wrist X-Ray 08/12/21 21:16 IMPRESSION: Extensive soft tissue swelling. No cortical disruptions or erosions to suspect osteomyelitis. If indicated, a follow-up study could be obtained as early osteolyses can be radiographically occult. As well, correlation with an MR could be obtained if indicated. Hand/Wrist X-Ray 08/12/21 21:16 IMPRESSION: Extensive soft tissue swelling. No cortical disruptions or erosions to suspect osteomyelitis. If indicated, a follow-up study could be obtained as early osteomyelitis can be radiographically occult. As well, correlation with an MR could be obtained if indicated. Venous Duplex 08/12/21 21:50 IMPRESSION: No DVT demonstrated in the bilateral upper extremities. Assessment and Plan (1) Cellulitis: Status: Acute (2) Polysubstance abuse: Status: Acute (3) Tobacco use disorder: Status: Acute Plan 40-year-old male with past medical history of polysubstance abuse presents to the hospital with complaints of skin infection his arms bilaterally found to have cellulitis # Cellulitis of forearms - at sites of incetions - drainage, erythema, tenderness, edema , mucopurulent discharge - start him on broad-spectrum IV antibiotics - no evidence of abscess - consult infectious disease - follow cultures # Polysubstance abuse - resume methadone - care team consult # Tobacco use - discussed NRT - agreeable to starting on nicotine patch dvt ppx: lovenox Quality Stroke Does the patient have a stroke diagnosis?: No VTE Prior VTE?: No VTE Risk Level:: Medical - moderate - high VTE Device Contraindication: Treatment Not Indicated VTE Drug Contraindication: N/A - Med Ordered
[2021-08-13 02:06] VITALS: BP 151/86; PULSE 70; RESP 14; TEMP 37.1; O2SAT 95
[2021-08-13] MEDS: Propranolol HCL 20 MG TABLET PO ×2 (02:21→20:59)
[2021-08-13] MEDS: vancomycin HCL 1,500 MG in 0.9 % Sodium Chloride 500 ML 333.33 MG IV (02:22)
[2021-08-13] MEDS: Ketorolac Tromethamine 30 MG/ML VIAL IVPUSH (03:52)
[2021-08-13 03:54] VITALS: BP 159/90; PULSE 53; RESP 16; TEMP 36.7; O2SAT 95
[2021-08-13] MEDS: Enoxaparin Sodium 40 MG/0.4 ML SYRINGE SUBCUT (07:22)
[2021-08-13] MEDS: Nicotine 14 MG PATCH.TD24 TRANSDERMA (07:23)
[2021-08-13] MEDS: Omeprazole 20 MG CAPSULE.DR PO (07:23)
--- NOTE | 2021-08-13 07:23 | PC.NURSE ---
Pt received from manager night: Pt AOX4 and offers no complaints at this time. Heart sounds normal and lungs clear. Noted multiple red, ozzing abscess from cocaine injection use. Pt scheduled IV ABT up and running. No fevers noted.
[2021-08-13 07:39] VITALS: BP 150/77; PULSE 57; RESP 16; TEMP 36.9; O2SAT 98
--- NOTE | 2021-08-13 08:06 | PHA.MEDREC ---
Pharmacy Consult ? Medication Reconciliation Pharmacy has completed the medication reconciliation. Patient confirm all medications which matched with claim history. Ariadne Pinto, JasonD
--- NOTE | 2021-08-13 08:07 | HE.PHANOTE ---
Methadone 80mg last dose 08/09/21 with 3 take home bottles. Patient reports took dose yesterday 08/12/21. Confirm with [employer], JasonD
--- NOTE | 2021-08-13 08:52 | PHA.PROG ---
Admission Date/Time: August 13, 2021 00:59 Indication: Cellulitis Weight in k.862 kg Adjusted body weight in K.3 kg [place] body weight in K kg Obesity Dosing Indication % IBW: 147% Serum Creatinine - Last 168 Hours 08/12/21 22:20 Creatinine 0.77 Estimated CrCl and GFR - Last 168 Hours 08/12/21 22:20 Estim Creat Clear Calc 155.9 Estimated GFR > 60 Vancomycin Loading Dose: 1500 mg (13.8 mg/kg) Current Vancomycin Dosing Regimen: 1000 mg Q12H Date and Time for next Vancomycin Level to be drawn: 08/14 @ 1200 Pharmacist Comments on Vancomycin Plan: First dose vancomycin 1500 mg given overnight 08/13 @ 0222 Maintenance dose vancomycin 1000 mg Q12H to begin 08/13 @ 1400. Expected AUC 445 with a trough of 12.2 Trough to be drawn prior to 4th dose. SCr was not drawn today since phlebotomy and ED body technician/painter was not able to drawn blood Pharmacy will continue to monitor lab situation. If labs cannot be drawn, then an alternative medication may be required Ariadne Pinto PharmD Vancomycin dosing will take advantage of [employer] as a clinical decision support tool that uses Bayesian modeling to calculate individual patient's pharmacokinetic parameters and forecast the patient's drug concentration time course with the target goal AUC 24 range of 400 - 600 mg/L/hr.
[2021-08-13 09:26] LABS: Basophils Percent Auto 0.5 % (0-2); Eosinophils Absolute Auto 0.2 X10*3/uL (0.0-0.4); Eosinophils Percent Auto 2.3 % (0-4); Hematocrit 34.8 % (42.0-52.0); Hemoglobin 11.3 g/dl (14.0-18.0); Imm Gran Abs Auto 0.04 X10*3/uL (0.00-0.03); Imm Gran Pct Auto 0.5 % (0.0-0.4); Lymphocytes Absolute Auto 1.4 X10*3/uL (1.2-4.9); Lymphocytes Percent Auto 18.1 % (20-40); MANUAL DIFF FLAG NO; Mean Corpuscular HGB Conc 32.5 g/dl (31.0-36.0); Mean Corpuscular Hemoglobin 30.2 pg (27.0-33.0); Mean Platelet Volume 9.4 fL (9.4-12.4); Monocytes Absolute Auto 0.5 X10*3/uL (0.1-1.2); Neutrophils Absolute Auto 5.7 x10*3/uL (2.0-8.3); Neutrophils Percent Auto 72.6 % (45-73); Platelet Count 413 X10*3/uL (160-400); Red Blood Count 3.74 X10*6/uL (4.60-5.80); Red Cell Distribution Width 13.2 % (11.0-16.0); White Blood Count 7.8 X10*3/uL (4.8-10.8)
--- NOTE | 2021-08-13 09:35 | MHC.CM.PN ---
Patient has been living at his Father's home and will likely return there at time of dc VS Care Team Interventions r/t IVDA. CM has initiated and will follow for dc planning.Patient has no PCP and he has received Moderna CovAdAlta vax X2. Patient gets his Methadone from [facility] on [facility] in [place].
[2021-08-13] MEDS: methADONE HCl 20 MG/2 ML ORAL.CONC 80 MG PO (09:37)
[2021-08-13 09:43] LABS: Anion Gap 12 (12-20); Blood Urea Nitrogen 10 mg/dL (9-16); Calcium 9.2 mg/dL (8.4-10.2); Carbon Dioxide 27 mmol/L (22-29); Chloride 102 mmol/L (96-108); Creatinine Clr Calc Pharmacy 153.9; Estimated Glomerular Filt Rate > 60; Glucose Random 123 mg/dL (60-115); Potassium 3.8 mmol/L (3.3-5.1); Sodium 137 mmol/L (135-145)
--- NOTE | 2021-08-13 14:46 | PM.EVENT ---
Event Note Date of Service: 08/13/21 Event Note: Patient seen and examined by hospitalist service earlier this morning already. Seen and examined again-patient came to the hospital because of bilateral arm cellulitis Physical exam: Unchanged from H&P Assessment plan: Please see H&P note, continue IV vanco and Zosyn Id evaluation, added foot x-ray also question of cellulitis.
[2021-08-13] MEDS: vancomycin HCL 1,000 MG in 0.9 % Sodium Chloride 250 ML 270 MG IV (15:08)
[2021-08-13 15:26] VITALS: BP 155/88; PULSE 72; RESP 18; TEMP 36.6; O2SAT 96
[2021-08-13 22:22] VITALS: BP 158/89; PULSE 68; RESP 18; TEMP 36.6; O2SAT 97
--- NOTE | 2021-08-13 22:32 | P.CNID_ITS ---
History of Present Illness Data of Consult Service Date: 08/13/21 Requesting physician: Candi Smalls Primary Care Provider: Unknown Physician HPI Reason for consult: multiple injection site erythema,malaise She presents with discomfort arms and right leg after injecting IV drugs,cocaine and opioids. He is not initially issued in opioid use disorder treatment. He notes some treatment and malaise. Review of Systems Review of Systems: Yes all other systems are reviewed and are negative PMFSH Past Medical History Medical History Foot abscess, right Hypertension Polysubstance abuse Family History Family History Other No family history of coronary artery disease Family history: reviewed and not pertinent Surgical History Surgical History No pertinent past surgical history Social History Social History Household Members: Significant Other [facility] Do you presently have visiting nurse or other home services: No Alcohol intake: current Patient Tobacco Use Status: Current everyday Tobacco user Tobacco use type: Cigarette Cigarette Packs Per Day: 0.5 Substance Use Type: Heroin and IV Drugs service: No Current occupational status: unemployed Meds Allergies Allergy/AdvReac Type Severity Reaction Status Date / Time No Known Allergies Allergy Verified 08/08/21 17:21 Active Medications: Current Medications Acetaminophen (Acetaminophen 325 Mg Tablet) 650 mg PO Q6H PRN PRN Reason: Pain, Mild (Pain Scale 1-3) Docusate Sodium (Docusate Sodium 100 Mg Capsule) 100 mg PO DAILY PRN PRN Reason: Constipation Enoxaparin Sodium (Enoxaparin Sodium 40 Mg/0.4 Ml Syringe) 40 mg SUBCUT Q24H [facility] Last Admin: 08/13/21 07:22 Dose: 40 mg Documented by: Vancomycin HCl 1,000 mg/ (Sodium Chloride) 270 mls @ 270 mls/hr IV Q12H [facility] Last Admin: 08/13/21 15:08 Dose: 270 mls/hr Documented by: Piperacillin Sod/Tazobactam (Sod 3.375 gm/ Sodium Chloride) 50 mls @ 100 mls/hr IV Q6H [facility] Last Admin: 08/13/21 21:00 Dose: 100 mls/hr Documented by: Methadone HCl (Methadone Hcl 20 Mg/2 Ml Oral.Conc) 80 mg PO DAILY [facility] Last Admin: 08/13/21 09:37 Dose: 80 mg Documented by: Nicotine (Nicotine 14 Mg Patch.Td24) 14 mg TRANSDERMA DAILY [facility] Last Admin: 08/13/21 07:23 Dose: 14 mg Documented by: Omeprazole (Omeprazole 20 Mg Capsule.Dr) 20 mg PO DAILY [facility] Last Admin: 08/13/21 07:23 Dose: 20 mg Documented by: Ondansetron HCl (Ondansetron Hcl 4 Mg/2 Ml Vial) 4 mg IVPUSH Q8H PRN PRN Reason: Nausea and Vomiting Oxycodone HCl (Oxycodone Hcl Immed Release 5 Mg Tablet) 5 mg PO Q6H PRN PRN Reason: Pain, Severe (Pain Scale 7-10) Pharmacy Consult (Consult Rx Vancomycin Dosing) 1 each MISCELLANE DAILY PRN PRN Reason: Consult order Propranolol HCl (Propranolol Hcl 20 Mg Tablet) 20 mg PO BEDTIME [facility]; Protocol Last Admin: 08/13/21 20:59 Dose: 20 mg Documented by: Sodium Chloride (0.9 % Sodium Chloride Flush 3 Ml Syringe) 3 ml IVFLUSH QSHIFT [facility] Last Admin: 08/13/21 07:12 Dose: Not Given Documented by: Home Medications Medication Instructions Recorded Confirmed Last Taken Type methadone 5 mg/5 mL oral solution 80 mg PO DAILY 08/13/21 08/13/21 08/12/21 History nicotine 21 mg/24 hr daily 1 patch TOPICAL DAILY 08/13/21 08/13/21 08/12/21 History transdermal patch omeprazole 20 mg capsule,delayed 20 mg PO DAILY 08/13/21 08/13/21 08/12/21 History release propranolol 20 mg tablet 1 tab PO BEDTIME 08/13/21 08/13/21 08/12/21 History Physical Exam Vital Signs: Vital Signs: Last Vital Signs Temp 97.9 F 08/13/21 22:22 Pulse 68 08/13/21 22:22 Resp 18 08/13/21 22:22 BP 158/89 H 08/13/21 22:22 Pulse Ox 97 08/13/21 22:22 BMI result Body Mass Index 34.4 Const: General: cooperative Orientation/consciousness: oriented to person HENMT: Head: Yes normal to inspection Mouth: Normal oral and palatal mucosa present Resp: Effort & Inspection: normal respiratory effort Cardio: Rate: regular rate Rhythm: regular rhythm GI: Palpation (GI): Soft to palpation and nontender Abdomen image: 1. track corley,healing 2. track corley,healing Neuro: General: oriented to person Extrem: Other: erythema,possible abscess top of foot Results Labs CBC & Chem 7: 08/13/21 09:21 08/16/21 05:56 Labs: Short CBC 08/12/21 08/13/21 Range/Units 22:20 09:21 WBC 9.9 7.8 (4.8-10.8) X10*3/uL Hgb 12.0 L 11.3 L (14.0-18.0) g/dl Hct 37.1 L 34.8 L (42.0-52.0) % Plt Count 428 H 413 H (160-400) X10*3/uL BMP 08/12/21 08/13/21 22:20 09:21 Sodium 136 137 Potassium 4.6 D 3.8 Chloride 101 102 Carbon Dioxide 23 27 BUN 9 10 Creatinine 0.77 0.78 Calcium 9.4 9.2 Liver Function 08/12/21 Range/Units 22:20 Total Bilirubin 0.4 (0.0-1.0) mg/dL AST 26 (5-37) U/L ALT 22 (0-40) U/L Alkaline Phosphatase 96 (39-117) U/L Albumin 3.6 (3.5-5.0) g/dL Assessment and Plan (1) Polysubstance abuse: Status: Acute (2) Cellulitis: Status: Acute He has healing areas over arms. He has possible abscess dorsal foot. He has possible bacteremia. Plan Would continue Vancomycin and Zosyn at this time Await blood cultures. Duration of antibiotics to be determined. Check echo if bacteremia.
[2021-08-14] MEDS: 0.9 % Sodium Chloride Flush 3 ML SYRINGE IVFLUSH (00:18)
[2021-08-14] MEDS: Piperacillin Sodium/Tazobactam 3.375 GM in 0.9 % Sodium Chloride 50 ML IV ×4 (02:17→20:44)
[2021-08-14] MEDS: vancomycin HCL 1,000 MG in 0.9 % Sodium Chloride 250 ML 270 MG IV (02:50)
[2021-08-14 06:07] VITALS: BP 147/87; PULSE 67; RESP 16; O2SAT 95
--- NOTE | 2021-08-14 06:12 | PC.NURSE ---
PT ambulated to the bathroom and back to bed with NAD.
[2021-08-14] MEDS: Enoxaparin Sodium 40 MG/0.4 ML SYRINGE SUBCUT (06:23)
[2021-08-14 07:47] LABS: Creatinine Clr Calc Pharmacy 144.6; Estimated Glomerular Filt Rate > 60
[2021-08-14] MEDS: Nicotine 14 MG PATCH.TD24 TRANSDERMA (09:08)
[2021-08-14] MEDS: methADONE HCl 20 MG/2 ML ORAL.CONC 80 MG PO (09:09)
[2021-08-14] MEDS: Omeprazole 20 MG CAPSULE.DR PO (09:09)
[2021-08-14 09:51] VITALS: BP 140/80; PULSE 70; RESP 18; TEMP 37; O2SAT 98
[2021-08-14] MEDS: Furosemide 20 MG/2 ML VIAL IVPUSH (13:10)
[2021-08-14 13:16] LABS: Vancomycin Trough 8.3 mcg/mL (10.0-20.0)
--- NOTE | 2021-08-14 13:27 | PHA.PROG ---
Admission Date/Time: August 13, 2021 00:59 Indication: Cellulitis Weight in k.862 kg Adjusted body weight in K.3 kg [place] body weight in K kg Obesity Dosing Indication % IBW: 147% Serum Creatinine - Last 168 Hours 08/12/21 08/13/21 08/14/21 22:20 09:21 07:16 Creatinine 0.77 0.78 0.83 Estimated CrCl and GFR - Last 168 Hours 08/12/21 08/13/21 08/14/21 22:20 09:21 07:16 Estim Creat Clear Calc 155.9 153.9 144.6 Estimated GFR > 60 > 60 > 60 Vancomycin Loading Dose: 1500 MG Current Vancomycin Dosing Regimen: 1000 mg Q12H Vancomycin Trough 8.3 mcg/mL (10.0-20.0) L 08/14/21 12:45 Pharmacist Comments on Vancomycin Plan: Vanco trough subtheraputic at 8.3 prior to 4th dose Will increase vancomycin to 1250 mg Q12H. Expected AUC to be 417. Since trough is almost therapuetic and patient is obese will stay on the side of caution by first increase to 1250 mg for 24 hours since SCR is trending up a little. Patient may need another increase tomorrow after level is drawn Pharmacy will continue to monitor renal function daily Ariadne Pinto PharmD Vancomycin dosing will take advantage of [employer] as a clinical decision support tool that uses Bayesian modeling to calculate individual patient's pharmacokinetic parameters and forecast the patient's drug concentration time course with the target goal AUC 24 range of 400 - 600 mg/L/hr.
--- NOTE | 2021-08-14 13:45 | PC.NURSE ---
Pt medicated per AUG. no c/o pain at this time. phlebotomy was not able to get blood from pt, so pts IV was used for bloodwork. Vanco trough drawn by tech in pts foot per Dr Smalls's verbal order. pt ambulatory independently on the unit offering no complaints at this time. explanation of care provided. Belongings and call louis within reach.
--- NOTE | 2021-08-14 15:08 | P.CONGS_ITS ---
History of Present Illness Consult details Consult date: 08/14/21 [facility] Past Medical History Medical History (Updated 08/14/21 @ 15:13 by Garland Maharaj MD) Foot abscess, right Hypertension Polysubstance abuse Family History Family History Other No family history of coronary artery disease Family history: reviewed and not pertinent Surgical History Surgical History No pertinent past surgical history Social History Social History Alcohol intake: current Patient Tobacco Use Status: Current everyday Tobacco user Tobacco use type: Cigarette Cigarette Packs Per Day: 0.5 Use of substances other than those prescribed or required for medical reasons: Yes Substance Use Type: Crack/Cocaine and Heroin Advance Directives: No Advance Directives Information Provided: Yes service: No Current occupational status: unemployed Meds Allergies Allergy/AdvReac Type Severity Reaction Status Date / Time No Known Allergies Allergy Verified 08/08/21 17:21 Active Medications: Current Medications Acetaminophen (Acetaminophen 325 Mg Tablet) 650 mg PO Q6H PRN PRN Reason: Pain, Mild (Pain Scale 1-3) Docusate Sodium (Docusate Sodium 100 Mg Capsule) 100 mg PO DAILY PRN PRN Reason: Constipation Enoxaparin Sodium (Enoxaparin Sodium 40 Mg/0.4 Ml Syringe) 40 mg SUBCUT Q24H [facility] Last Admin: 08/14/21 06:23 Dose: 40 mg Documented by: Piperacillin Sod/Tazobactam (Sod 3.375 gm/ Sodium Chloride) 50 mls @ 100 mls/hr IV Q6H [facility] Last Admin: 08/14/21 14:38 Dose: 100 mls/hr Documented by: Vancomycin HCl 1,250 mg/ (Sodium Chloride) 250 mls @ 166.667 mls/hr IV Q12H [facility] Methadone HCl (Methadone Hcl 20 Mg/2 Ml Oral.Conc) 80 mg PO DAILY [facility] Last Admin: 08/14/21 09:09 Dose: 80 mg Documented by: Nicotine (Nicotine 14 Mg Patch.Td24) 14 mg TRANSDERMA DAILY [facility] Last Admin: 08/14/21 09:08 Dose: 14 mg Documented by: Omeprazole (Omeprazole 20 Mg Capsule.Dr) 20 mg PO DAILY [facility] Last Admin: 08/14/21 09:09 Dose: 20 mg Documented by: Ondansetron HCl (Ondansetron Hcl 4 Mg/2 Ml Vial) 4 mg IVPUSH Q8H PRN PRN Reason: Nausea and Vomiting Oxycodone HCl (Oxycodone Hcl Immed Release 5 Mg Tablet) 5 mg PO Q6H PRN PRN Reason: Pain, Severe (Pain Scale 7-10) Pharmacy Consult (Consult Rx Vancomycin Dosing) 1 each MISCELLANE DAILY PRN PRN Reason: Consult order Propranolol HCl (Propranolol Hcl 20 Mg Tablet) 20 mg PO BEDTIME [facility]; Protocol Last Admin: 08/13/21 20:59 Dose: 20 mg Documented by: Sodium Chloride (0.9 % Sodium Chloride Flush 3 Ml Syringe) 3 ml IVFLUSH QSHIFT [facility] Last Admin: 08/14/21 07:37 Dose: Not Given Documented by: Home Medications Medication Instructions Recorded Confirmed Last Taken Type cephalexin 500 mg capsule 1 cap PO QID 08/13/21 08/13/21 08/12/21 History doxycycline hyclate 100 mg tablet 1 tab PO BID 08/13/21 08/13/21 08/12/21 History methadone 5 mg/5 mL oral solution 80 mg PO DAILY 08/13/21 08/13/21 08/12/21 History nicotine 21 mg/24 hr daily 1 patch TOPICAL DAILY 08/13/21 08/13/21 08/12/21 History transdermal patch omeprazole 20 mg capsule,delayed 20 mg PO DAILY 08/13/21 08/13/21 08/12/21 History release propranolol 20 mg tablet 1 tab PO BEDTIME 08/13/21 08/13/21 08/12/21 History Physical Exam Vital Signs: Vital Signs: Last Vital Signs Temp 98.6 F 08/14/21 09:51 Pulse 70 08/14/21 09:51 Resp 18 08/14/21 09:51 BP 140/80 H 08/14/21 09:51 Pulse Ox 98 08/14/21 09:51 BMI result Body Mass Index 34.4 Results Labs Result diagrams: 08/13/21 09:21 08/14/21 07:16 Labs: Abnormal lab results 08/14/21 Range/Units 12:45 Vancomycin Trough 8.3 L (10.0-20.0) mcg/mL BMP 08/14/21 07:16 Creatinine 0.83 All other labs normal. Procedures Date of Service Date of Service: 08/14/21
--- NOTE | 2021-08-14 15:11 | PM.CNGS ---
History of Present Illness Consult details Consult date: 08/14/21 Narrative: 40-year-old male referred for right foot abscess. He has known IV drug abuser. He says that he has used the dorsum of his right foot in the past for IV access. He says that about a week ago, he noticed an area of redness the dorsum of this foot. This had worsened during the past few days and had become more swollen with her worsening redness. He therefore came to the ER 2 days ago and was admitted for this. He does admit to pain and tenderness on the area. Review of Systems Constitutional: Constitutional: Denies chills and Denies fever(s) Cardiovascular: Cardiovascular: Denies chest pain, Denies dyspnea and Denies dyspnea on exertion Respiratory: Respiratory: Denies cough, Denies dyspnea and Denies dyspnea on exertion Gastrointestinal: Gastrointestinal: Denies hematochezia and Denies change in bowel habits Genitourinary: Genitourinary: Denies hematuria and Denies difficulty urinating Musculoskeletal: Musculoskeletal: Denies back pain and Denies limited range of motion Neurologic: Denies focal weakness and Denies convulsions Psychiatric: Psychiatric: Denies depression and Denies mood swings PMFSH Past Medical History Medical History (Updated 08/14/21 @ 15:13 by Garland Maharaj MD) Foot abscess, right Hypertension Polysubstance abuse Family History Family History Other No family history of coronary artery disease Family history: reviewed and not pertinent Surgical History Surgical History No pertinent past surgical history Social History Social History Alcohol intake: current Patient Tobacco Use Status: Current everyday Tobacco user Tobacco use type: Cigarette Cigarette Packs Per Day: 0.5 Use of substances other than those prescribed or required for medical reasons: Yes Substance Use Type: Crack/Cocaine and Heroin Advance Directives: No Advance Directives Information Provided: Yes service: No Current occupational status: unemployed Meds Allergies Allergy/AdvReac Type Severity Reaction Status Date / Time No Known Allergies Allergy Verified 08/08/21 17:21 Active Medications: Current Medications Acetaminophen (Acetaminophen 325 Mg Tablet) 650 mg PO Q6H PRN PRN Reason: Pain, Mild (Pain Scale 1-3) Docusate Sodium (Docusate Sodium 100 Mg Capsule) 100 mg PO DAILY PRN PRN Reason: Constipation Enoxaparin Sodium (Enoxaparin Sodium 40 Mg/0.4 Ml Syringe) 40 mg SUBCUT Q24H [facility] Last Admin: 08/14/21 06:23 Dose: 40 mg Documented by: Piperacillin Sod/Tazobactam (Sod 3.375 gm/ Sodium Chloride) 50 mls @ 100 mls/hr IV Q6H [facility] Last Admin: 08/14/21 14:38 Dose: 100 mls/hr Documented by: Vancomycin HCl 1,250 mg/ (Sodium Chloride) 250 mls @ 166.667 mls/hr IV Q12H [facility] Methadone HCl (Methadone Hcl 20 Mg/2 Ml Oral.Conc) 80 mg PO DAILY [facility] Last Admin: 08/14/21 09:09 Dose: 80 mg Documented by: Nicotine (Nicotine 14 Mg Patch.Td24) 14 mg TRANSDERMA DAILY [facility] Last Admin: 08/14/21 09:08 Dose: 14 mg Documented by: Omeprazole (Omeprazole 20 Mg Capsule.Dr) 20 mg PO DAILY [facility] Last Admin: 08/14/21 09:09 Dose: 20 mg Documented by: Ondansetron HCl (Ondansetron Hcl 4 Mg/2 Ml Vial) 4 mg IVPUSH Q8H PRN PRN Reason: Nausea and Vomiting Oxycodone HCl (Oxycodone Hcl Immed Release 5 Mg Tablet) 5 mg PO Q6H PRN PRN Reason: Pain, Severe (Pain Scale 7-10) Pharmacy Consult (Consult Rx Vancomycin Dosing) 1 each MISCELLANE DAILY PRN PRN Reason: Consult order Propranolol HCl (Propranolol Hcl 20 Mg Tablet) 20 mg PO BEDTIME [facility]; Protocol Last Admin: 08/13/21 20:59 Dose: 20 mg Documented by: Sodium Chloride (0.9 % Sodium Chloride Flush 3 Ml Syringe) 3 ml IVFLUSH QSHIFT [facility] Last Admin: 08/14/21 07:37 Dose: Not Given Documented by: Home Medications Medication Instructions Recorded Confirmed Last Taken Type cephalexin 500 mg capsule 1 cap PO QID 08/13/21 08/13/21 08/12/21 History doxycycline hyclate 100 mg tablet 1 tab PO BID 08/13/21 08/13/21 08/12/21 History methadone 5 mg/5 mL oral solution 80 mg PO DAILY 08/13/21 08/13/21 08/12/21 History nicotine 21 mg/24 hr daily 1 patch TOPICAL DAILY 08/13/21 08/13/21 08/12/21 History transdermal patch omeprazole 20 mg capsule,delayed 20 mg PO DAILY 08/13/21 08/13/21 08/12/21 History release propranolol 20 mg tablet 1 tab PO BEDTIME 08/13/21 08/13/21 08/12/21 History Physical Exam Vital Signs: Vital Signs: Last Vital Signs Temp 98.6 F 08/14/21 09:51 Pulse 70 08/14/21 09:51 Resp 18 08/14/21 09:51 BP 140/80 H 08/14/21 09:51 Pulse Ox 98 08/14/21 09:51 BMI result Body Mass Index 34.4 Const: General: comfortable and no acute distress Orientation/consciousness: patient oriented x3 Neck: Neck: Yes no lymphadenopathy Resp: Auscultation: clear to auscultation bilaterally Cardio: Rhythm: regular rhythm GI: Palpation (GI): Soft to palpation, nontender and no guarding Neuro: General: patient oriented x3 Extrem: Other: Right foot on dorsum with area of fluctuance about 2.5 cm in diameter, with surrounding cellulitis and induration Results Labs Result diagrams: 08/13/21 09:21 08/14/21 07:16 Labs: Abnormal lab results 08/14/21 Range/Units 12:45 Vancomycin Trough 8.3 L (10.0-20.0) mcg/mL BMP 08/14/21 07:16 Creatinine 0.83 All other labs normal. Assessment and Plan (1) Foot abscess, right: Status: Acute This appears to be on his IV access site for his drug abuse. In view of the induration, fluctuance and tenderness, explained to him that it would be best to proceed with I and D under local anesthesia. I had with the technique of this procedure. I explained the risks, benefits, and alternatives. He had given verbal consent. This area the right foot was prepped and draped. Lidocaine 1% was used for local anesthesia. I made a generous cruciate incision using blade 11 and this was carried down through the full-thickness of skin to enter an abscess cavity. Large amounts of thick, yellow-green pus was drained. I took cultures of this and this was sent for specimen. I probed the cavity to make sure that all localizations have been broken down. I then covered this with gauze and wrapped the foot with Kerlix . He tolerated procedure well. There were no immediate complications. The cultures should be checked for results. Wound care will require dry dressings daily. Procedures Date of Service Date of Service: 08/14/21
[2021-08-14] MEDS: vancomycin HCL 1,250 MG in 0.9 % Sodium Chloride 250 ML 166.67 MG IV (15:34)
--- NOTE | 2021-08-14 17:20 | HO.PM.IMPN ---
Subjective Subjective Date of Service: 08/14/21 Interval History: arm cellulitis . right foot abcess Review of Systems Patient has erythema and swelling of arms, denies any chest pain or shortness of breath abdominal pain fever chills or cough or phlegm. Physical Exam Vital Signs: Vital Signs: Last Vital Signs Temp 98.6 F 08/14/21 09:51 Pulse 70 08/14/21 09:51 Resp 18 08/14/21 09:51 BP 140/80 H 08/14/21 09:51 Pulse Ox 98 08/14/21 09:51 BMI result Body Mass Index 34.4 Appearance: Alert.? Oriented X3.? not in distress.? Eyes: Pupils equal, round and reactive to light.? Sclera nonicteric.? ENT: Pharynx normal.? Moist mucous membranes. cvs: rrr, [id number] , no murmur res: clear to auscultation ,no rhonchii or wheezing abd: no rebound or guarding ,nt, bs present. ext pulses present , no cyanosis bilateral erythema, warmth, small ulcers better draining on the left hand,mild dischrage , also right foot possible abcess . neuro: axo3 , nonfocal. Objective Data Active Medications Acetaminophen (Acetaminophen 325 Mg Tablet) 650 mg PO Q6H PRN PRN Reason: Pain, Mild (Pain Scale 1-3) Docusate Sodium (Docusate Sodium 100 Mg Capsule) 100 mg PO DAILY PRN PRN Reason: Constipation Enoxaparin Sodium (Enoxaparin Sodium 40 Mg/0.4 Ml Syringe) 40 mg SUBCUT Q24H [facility] Last Admin: 08/14/21 06:23 Dose: 40 mg Documented by: BHAVNA Piperacillin Sod/Tazobactam (Sod 3.375 gm/ Sodium Chloride) 50 mls @ 100 mls/hr IV Q6H [facility] Last Infusion: 08/14/21 15:37 Dose: 0 mls/hr Documented by: ROSIE Vancomycin HCl 1,250 mg/ (Sodium Chloride) 250 mls @ 166.667 mls/hr IV Q12H [facility] Last Admin: 08/14/21 15:34 Dose: 166.67 mls/hr Documented by: ROSIE Methadone HCl (Methadone Hcl 20 Mg/2 Ml Oral.Conc) 80 mg PO DAILY [facility] Last Admin: 08/14/21 09:09 Dose: 80 mg Documented by: ROSIE Nicotine (Nicotine 14 Mg Patch.Td24) 14 mg TRANSDERMA DAILY [facility] Last Admin: 08/14/21 09:08 Dose: 14 mg Documented by: ROSIE Omeprazole (Omeprazole 20 Mg Capsule.Dr) 20 mg PO DAILY [facility] Last Admin: 08/14/21 09:09 Dose: 20 mg Documented by: ROSIE Ondansetron HCl (Ondansetron Hcl 4 Mg/2 Ml Vial) 4 mg IVPUSH Q8H PRN PRN Reason: Nausea and Vomiting Oxycodone HCl (Oxycodone Hcl Immed Release 5 Mg Tablet) 5 mg PO Q6H PRN PRN Reason: Pain, Severe (Pain Scale 7-10) Pharmacy Consult (Consult Rx Vancomycin Dosing) 1 each MISCELLANE DAILY PRN PRN Reason: Consult order Propranolol HCl (Propranolol Hcl 20 Mg Tablet) 20 mg PO BEDTIME [facility]; Protocol Last Admin: 08/13/21 20:59 Dose: 20 mg Documented by: PILLO Sodium Chloride (0.9 % Sodium Chloride Flush 3 Ml Syringe) 3 ml IVFLUSH QSHIFT [facility] Last Admin: 08/14/21 15:40 Dose: Not Given Documented by: ROSIE Non-Admin Reason: IV Running Labs CBC & Chem 7: 08/13/21 09:21 08/14/21 07:16 Labs: Laboratory Results - last 24 hr 08/14/21 08/14/21 07:16 12:45 Estim Creat Clear Calc 144.6 Estimated GFR > 60 Vancomycin Trough 8.3 L Assessment and Plan (1) Foot abscess, right: Status: Acute (2) Polysubstance abuse: Status: Acute (3) Cellulitis: Status: Acute Plan 40-year-old male with past medical history of polysubstance abuse presents to the hospital? with complaints of skin infection his arms bilaterally found to have cellulitis 1. Cellulitis of forearms - at sites of incetions - drainage, erythema, tenderness, edema ,? mucopurulent discharge vanco tough 8.5 -? start him on broad-spectrum IV antibiotics-vanco adjusted. right foot abcess -s/p drainage today consult infectious disease,follow cultures 2. Polysubstance abuse - resume methadone - care team consult 3. Tobacco use - discussed NRT - agreeable to starting on nicotine patch dvt ppx: lovenox Quality Stroke Does the patient have a stroke diagnosis?: No VTE Prior VTE?: No VTE Risk Level:: Medical - moderate - high VTE Device Contraindication: Treatment Not Indicated VTE Drug Contraindication: N/A - Med Ordered
[2021-08-14] MEDS: Propranolol HCL 20 MG TABLET PO (20:44)
[2021-08-15] VITALS (7 sets, daily range): BP systolic 144–171; BP diastolic 72–87; PULSE 57–62; RESP 14–20; TEMP 35.5–36.8; O2SAT 96–98
[2021-08-15] MEDS: 0.9 % Sodium Chloride Flush 3 ML SYRINGE IVFLUSH ×3 (00:03→16:14)
--- NOTE | 2021-08-15 00:54 | PC.NURSE ---
PATIENT REPORT GIVEN TO [place] [address] RN ASSIGNED TO ACCEPT PATIENT. PATIENT TRANSFERRED VIA WHEELCHAIR BY [employer] SETTER TO [place] [address] AT APPROXIMATELY 0045 WITH HIS BELONGINGS. PT ALERT, CALM, AND CO-OP WITH NO COMPLAINTS PAIN OR DISCOMFORTS, VSS.
[2021-08-15] MEDS: Piperacillin Sodium/Tazobactam 3.375 GM in 0.9 % Sodium Chloride 50 ML IV ×4 (01:55→20:32)
[2021-08-15] MEDS: vancomycin HCL 1,250 MG in 0.9 % Sodium Chloride 250 ML 166.67 MG IV ×2 (02:30→16:13)
[2021-08-15] MEDS: Enoxaparin Sodium 40 MG/0.4 ML SYRINGE SUBCUT (05:26)
[2021-08-15] MEDS: methADONE HCl 20 MG/2 ML ORAL.CONC 80 MG PO (07:59)
[2021-08-15] MEDS: Nicotine 14 MG PATCH.TD24 TRANSDERMA (08:00)
[2021-08-15] MEDS: Omeprazole 20 MG CAPSULE.DR PO (08:00)
--- NOTE | 2021-08-15 08:09 | P.PNIM_ITS ---
Subjective Subjective Date of Service: 08/15/21 Interval History: b/l arm cellulitis Review of Systems still has erythema similar to yesterday , denies any chest pain or sob or fevers or chills Physical Exam Vital Signs: Vital Signs: Last Vital Signs Temp 96 F L 08/15/21 07:13 Pulse 62 08/15/21 07:13 Resp 18 08/15/21 07:13 BP 145/78 H 08/15/21 07:13 Pulse Ox 98 08/15/21 07:13 BMI result Body Mass Index 34.4 Objective Data Active Medications Acetaminophen (Acetaminophen 325 Mg Tablet) 650 mg PO Q6H PRN PRN Reason: Pain, Mild (Pain Scale 1-3) Docusate Sodium (Docusate Sodium 100 Mg Capsule) 100 mg PO DAILY PRN PRN Reason: Constipation Enoxaparin Sodium (Enoxaparin Sodium 40 Mg/0.4 Ml Syringe) 40 mg SUBCUT Q24H [facility] Last Admin: 08/15/21 05:26 Dose: 40 mg Documented by: YAYO Piperacillin Sod/Tazobactam (Sod 3.375 gm/ Sodium Chloride) 50 mls @ 100 mls/hr IV Q6H [facility] Last Infusion: 08/15/21 02:33 Dose: 0 mls/hr Documented by: YAYO Vancomycin HCl 1,250 mg/ (Sodium Chloride) 250 mls @ 166.667 mls/hr IV Q12H [facility] Last Infusion: 08/15/21 04:08 Dose: 0 mls/hr Documented by: YAYO Methadone HCl (Methadone Hcl 20 Mg/2 Ml Oral.Conc) 80 mg PO DAILY [facility] Last Admin: 08/14/21 09:09 Dose: 80 mg Documented by: ROSIE Nicotine (Nicotine 14 Mg Patch.Td24) 14 mg TRANSDERMA DAILY [facility] Last Admin: 08/14/21 09:08 Dose: 14 mg Documented by: ROSIE Omeprazole (Omeprazole 20 Mg Capsule.Dr) 20 mg PO DAILY [facility] Last Admin: 08/14/21 09:09 Dose: 20 mg Documented by: ROSIE Ondansetron HCl (Ondansetron Hcl 4 Mg/2 Ml Vial) 4 mg IVPUSH Q8H PRN PRN Reason: Nausea and Vomiting Oxycodone HCl (Oxycodone Hcl Immed Release 5 Mg Tablet) 5 mg PO Q6H PRN PRN Reason: Pain, Severe (Pain Scale 7-10) Pharmacy Consult (Consult Rx Vancomycin Dosing) 1 each MISCELLANE DAILY PRN PRN Reason: Consult order Propranolol HCl (Propranolol Hcl 20 Mg Tablet) 20 mg PO BEDTIME [facility]; Protocol Last Admin: 08/14/21 20:44 Dose: 20 mg Documented by: PILLO Sodium Chloride (0.9 % Sodium Chloride Flush 3 Ml Syringe) 3 ml IVFLUSH QSHIFT [facility] Last Admin: 08/15/21 00:03 Dose: 3 ml Documented by: BHAVNA Labs CBC & Chem 7: 08/13/21 09:21 08/15/21 09:32 Labs: Laboratory Results - last 24 hr 08/14/21 12:45 Vancomycin Trough 8.3 L Assessment and Plan (1) Foot abscess, right: Status: Acute (2) Cellulitis: Status: Acute Plan 40-year-old male with past medical history of polysubstance abuse presents to the hospital? with complaints of skin infection his arms bilaterally found to have cellulitis 1. Cellulitis of forearms - at sites of incetions - drainage, erythema, tenderness, edema ,? mucopurulent discharge vanco tough 12.6 -? start him on broad-spectrum IV antibiotics-vanco adjusted. right foot abcess -s/p drainage yesterday ?consult infectious disease,follow cultures 2. Polysubstance abuse - resume methadone - care team consult 3. Tobacco use - discussed NRT - agreeable to starting on nicotine patch dvt ppx: lovenox Quality Stroke Does the patient have a stroke diagnosis?: No VTE Prior VTE?: No VTE Risk Level:: Medical - moderate - high VTE Device Contraindication: Treatment Not Indicated VTE Drug Contraindication: N/A - Med Ordered
[2021-08-15 10:03] LABS: Anion Gap 11 (12-20); Blood Urea Nitrogen 10 mg/dL (9-16); Calcium 9.1 mg/dL (8.4-10.2); Carbon Dioxide 28 mmol/L (22-29); Chloride 105 mmol/L (96-108); Creatinine Clr Calc Pharmacy 141.2; Creatinine Clr Calc Pharmacy 144.6; Estimated Glomerular Filt Rate > 60; Glucose Random 104 mg/dL (60-115); Potassium 3.8 mmol/L (3.3-5.1); Sodium 140 mmol/L (135-145)
[2021-08-15 10:23] LABS: Erythrocyte Sedimentation Rate 81 MM/HR (0-15)
--- NOTE | 2021-08-15 13:11 | MHC.RECOVRN ---
T/w has met with pt daily since 08/13 to provide recovery support. Pt is not interested in resources or referrals at this time, however, is open to discussion regarding recovery. Pt reports cocaine use regularly with intermittent heroin use. Pt is currently on 80 mg methadone and feels that is helping. Pt has hx of [facility] treatment including residential and [facility]. Pt is s/p I and D of right foot, done yesterday, and reports it is feeling much better and denies pain. Pt reports feeling okay overall, looking forward to swelling in upper extremities to decrease due to it feeling tight. Pt offers no other complaints and has t/w contact information if needed.
[2021-08-15 13:15] LABS: Vancomycin Trough 12.6 mcg/mL (10.0-20.0)
--- NOTE | 2021-08-15 14:18 | P.PNGS_ITS ---
Subjective Subjective Date of Service: 08/15/21 Interval history: Denies significant pain Still has some bilateral arm swelling Physical Exam Vital Signs: Vital Signs: Last Vital Signs Temp 97 F 08/15/21 11:00 Pulse 60 08/15/21 11:00 Resp 18 08/15/21 11:00 BP 164/81 H 08/15/21 11:00 Pulse Ox 96 08/15/21 11:00 BMI result Body Mass Index 34.4 Const: General: comfortable and no acute distress Resp: Effort & Inspection: normal respiratory effort GI: Palpation (GI): Soft to palpation Extrem: Other: Right foot - dressings have been changed but as per report, I&D site clean, no spreading cellulitis Objective Data Active Medications Acetaminophen (Acetaminophen 325 Mg Tablet) 650 mg PO Q6H PRN PRN Reason: Pain, Mild (Pain Scale 1-3) Docusate Sodium (Docusate Sodium 100 Mg Capsule) 100 mg PO DAILY PRN PRN Reason: Constipation Enoxaparin Sodium (Enoxaparin Sodium 40 Mg/0.4 Ml Syringe) 40 mg SUBCUT Q24H [facility] Last Admin: 08/15/21 05:26 Dose: 40 mg Documented by: YAYO Piperacillin Sod/Tazobactam (Sod 3.375 gm/ Sodium Chloride) 50 mls @ 100 mls/hr IV Q6H [facility] Last Infusion: 08/15/21 11:21 Dose: 0 mls/hr Documented by: VIOLET Vancomycin HCl 1,250 mg/ (Sodium Chloride) 250 mls @ 166.667 mls/hr IV Q12H [facility] Last Infusion: 08/15/21 04:08 Dose: 0 mls/hr Documented by: YAYO Methadone HCl (Methadone Hcl 20 Mg/2 Ml Oral.Conc) 80 mg PO DAILY [facility] Last Admin: 08/15/21 07:59 Dose: 80 mg Documented by: VIOLET Nicotine (Nicotine 14 Mg Patch.Td24) 14 mg TRANSDERMA DAILY [facility] Last Admin: 08/15/21 08:00 Dose: 14 mg Documented by: VIOLET Omeprazole (Omeprazole 20 Mg Capsule.Dr) 20 mg PO DAILY [facility] Last Admin: 08/15/21 08:00 Dose: 20 mg Documented by: VIOLET Ondansetron HCl (Ondansetron Hcl 4 Mg/2 Ml Vial) 4 mg IVPUSH Q8H PRN PRN Reason: Nausea and Vomiting Oxycodone HCl (Oxycodone Hcl Immed Release 5 Mg Tablet) 5 mg PO Q6H PRN PRN Reason: Pain, Severe (Pain Scale 7-10) Pharmacy Consult (Consult Rx Vancomycin Dosing) 1 each MISCELLANE DAILY PRN PRN Reason: Consult order Propranolol HCl (Propranolol Hcl 20 Mg Tablet) 20 mg PO BEDTIME [facility]; Protocol Last Admin: 08/14/21 20:44 Dose: 20 mg Documented by: PILLO Sodium Chloride (0.9 % Sodium Chloride Flush 3 Ml Syringe) 3 ml IVFLUSH QSHIFT [facility] Last Admin: 08/15/21 11:21 Dose: 3 ml Documented by: VIOLET Labs CBC & Chem 7: 08/13/21 09:21 08/15/21 09:32 Labs: Laboratory Results - last 24 hr 08/15/21 08/15/21 08/15/21 09:32 09:32 09:32 ESR 81 H Anion Gap 11 L Estim Creat Clear Calc 144.6 141.2 Estimated GFR > 60 > 60 Random Glucose 104 Calcium 9.1 C-Reactive Protein Vancomycin Trough 08/15/21 08/15/21 09:32 12:24 ESR Anion Gap Estim Creat Clear Calc Estimated GFR Random Glucose Calcium C-Reactive Protein 2.50 H Vancomycin Trough 12.6 Microbiology Microbiology Results: Microbiology 08/14/21 15:30 Gram Stain - Final Foot Right Routine Culture - Preliminary No growth to date. Procedures Date of Service Date of Service: 08/15/21 Progress Note: A&P Assessment and plan (1) Foot abscess, right: Status: Acute Assessment and Plan: I and D done at bedside yesterday Follow up on cultures Dry dressing changes daily Okay to [place] home from surgical standpoint on oral antibiotics Fall Risk Details Current Medications: Current Medications Acetaminophen (Acetaminophen 325 Mg Tablet) 650 mg PO Q6H PRN PRN Reason: Pain, Mild (Pain Scale 1-3) Docusate Sodium (Docusate Sodium 100 Mg Capsule) 100 mg PO DAILY PRN PRN Reason: Constipation Enoxaparin Sodium (Enoxaparin Sodium 40 Mg/0.4 Ml Syringe) 40 mg SUBCUT Q24H [facility] Last Admin: 08/15/21 05:26 Dose: 40 mg Documented by: Piperacillin Sod/Tazobactam (Sod 3.375 gm/ Sodium Chloride) 50 mls @ 100 mls/hr IV Q6H [facility] Last Infusion: 08/15/21 11:21 Dose: Infused Documented by: Vancomycin HCl 1,250 mg/ (Sodium Chloride) 250 mls @ 166.667 mls/hr IV Q12H [facility] Last Infusion: 08/15/21 04:08 Dose: Infused Documented by: Methadone HCl (Methadone Hcl 20 Mg/2 Ml Oral.Conc) 80 mg PO DAILY [facility] Last Admin: 08/15/21 07:59 Dose: 80 mg Documented by: Nicotine (Nicotine 14 Mg Patch.Td24) 14 mg TRANSDERMA DAILY [facility] Last Admin: 08/15/21 08:00 Dose: 14 mg Documented by: Omeprazole (Omeprazole 20 Mg Capsule.Dr) 20 mg PO DAILY [facility] Last Admin: 08/15/21 08:00 Dose: 20 mg Documented by: Ondansetron HCl (Ondansetron Hcl 4 Mg/2 Ml Vial) 4 mg IVPUSH Q8H PRN PRN Reason: Nausea and Vomiting Oxycodone HCl (Oxycodone Hcl Immed Release 5 Mg Tablet) 5 mg PO Q6H PRN PRN Reason: Pain, Severe (Pain Scale 7-10) Pharmacy Consult (Consult Rx Vancomycin Dosing) 1 each MISCELLANE DAILY PRN PRN Reason: Consult order Propranolol HCl (Propranolol Hcl 20 Mg Tablet) 20 mg PO BEDTIME [facility]; Protocol Last Admin: 08/14/21 20:44 Dose: 20 mg Documented by: Sodium Chloride (0.9 % Sodium Chloride Flush 3 Ml Syringe) 3 ml IVFLUSH QSHIFT [facility] Last Admin: 08/15/21 11:21 Dose: 3 ml Documented by: Time Spent With Patient Time: Total time spent is greater than 50% in coordination of care (as documented) at patient's floor/unit and/or counseling patient: Time with patient: less than 15 minutes Quality Stroke Does the patient have a stroke diagnosis?: No VTE Prior VTE?: No VTE Risk Level:: Medical - moderate - high VTE Device Contraindication: Treatment Not Indicated VTE Drug Contraindication: N/A - Med Ordered
[2021-08-15] MEDS: Propranolol HCL 20 MG TABLET PO (20:30)
[2021-08-16] MEDS: Piperacillin Sodium/Tazobactam 3.375 GM in 0.9 % Sodium Chloride 50 ML IV ×3 (01:36→13:28)
[2021-08-16] MEDS: vancomycin HCL 1,250 MG in 0.9 % Sodium Chloride 250 ML 166.67 MG IV (02:12)
[2021-08-16 03:42] VITALS: BP 156/81; PULSE 60; RESP 18; TEMP 36.2; O2SAT 98
[2021-08-16] MEDS: Enoxaparin Sodium 40 MG/0.4 ML SYRINGE SUBCUT (06:12)
[2021-08-16 06:55] LABS: Anion Gap 13 (12-20); Blood Urea Nitrogen 12 mg/dL (9-16); Carbon Dioxide 26 mmol/L (22-29); Chloride 105 mmol/L (96-108); Creatinine Clr Calc Pharmacy 144.6; Estimated Glomerular Filt Rate > 60; Glucose Random 97 mg/dL (60-115); Potassium 4.3 mmol/L (3.3-5.1); Sodium 140 mmol/L (135-145)
[2021-08-16 06:56] VITALS: BP 170/80; PULSE 59; RESP 18; TEMP 36; O2SAT 98
[2021-08-16] MEDS: Nicotine 14 MG PATCH.TD24 TRANSDERMA (08:10)
[2021-08-16] MEDS: 0.9 % Sodium Chloride Flush 3 ML SYRINGE IVFLUSH (08:10)
[2021-08-16] MEDS: Omeprazole 20 MG CAPSULE.DR PO (08:11)
[2021-08-16] MEDS: methADONE HCl 20 MG/2 ML ORAL.CONC 80 MG PO (08:12)
[2021-08-16 11:18] VITALS: BP 154/82; PULSE 56; RESP 19; TEMP 36.1; O2SAT 96
[2021-08-16] MEDS: Furosemide 20 MG/2 ML VIAL IVPUSH (11:38)
--- NOTE | 2021-08-16 12:19 | P.PNIM_ITS ---
Subjective Subjective Date of Service: 08/16/21 Interval History: cellulitis b/l arms Review of Systems seems improving , swelling also improving slow response Physical Exam Vital Signs: Vital Signs: Last Vital Signs Temp 97 F 08/16/21 11:18 Pulse 56 08/16/21 11:18 Resp 19 08/16/21 11:18 BP 154/82 H 08/16/21 11:18 Pulse Ox 96 08/16/21 11:18 BMI result Body Mass Index 34.4 Appearance: Alert.? Oriented X3.? not in distress.? Eyes: Pupils equal, round and reactive to light.? Sclera nonicteric.? ENT: Pharynx normal.? Moist mucous membranes. cvs: rrr, [id number] , no murmur res: clear to auscultation ,no rhonchii or wheezing abd: no rebound or guarding ,nt, bs present. ext pulses present , no cyanosis bilateral erythema, warmth, small ulcers better draining on the? left hand,mild dischrage ,right foot abcess s/p drainage . neuro: axo3 , nonfocal. Objective Data Active Medications Acetaminophen (Acetaminophen 325 Mg Tablet) 650 mg PO Q6H PRN PRN Reason: Pain, Mild (Pain Scale 1-3) Docusate Sodium (Docusate Sodium 100 Mg Capsule) 100 mg PO DAILY PRN PRN Reason: Constipation Enoxaparin Sodium (Enoxaparin Sodium 40 Mg/0.4 Ml Syringe) 40 mg SUBCUT Q24H [facility]END[facility] TO [facility] Last Admin: 08/16/21 06:12 Dose: 40 mg Documented by: HARSHA Piperacillin Sod/Tazobactam (Sod 3.375 gm/ Sodium Chloride) 50 mls @ 100 mls/hr IV Q6H [facility] Last Infusion: 08/16/21 09:04 Dose: 0 mls/hr Documented by: ALDO Vancomycin HCl 1,250 mg/ (Sodium Chloride) 250 mls @ 166.667 mls/hr IV Q12H [facility] TO [facility] Last Infusion: 08/16/21 03:55 Dose: 0 mls/hr Documented by: HARSHA Methadone HCl (Methadone Hcl 20 Mg/2 Ml Oral.Conc) 80 mg PO DAILY [facility] Last Admin: 08/16/21 08:12 Dose: 80 mg Documented by: ALDO Nicotine (Nicotine 14 Mg Patch.Td24) 14 mg TRANSDERMA DAILY [facility] Last Admin: 08/16/21 08:10 Dose: 14 mg Documented by: ALDO Omeprazole (Omeprazole 20 Mg Capsule.) 20 mg PO DAILY [facility] Last Admin: 08/16/21 08:11 Dose: 20 mg Documented by: ALDO Ondansetron HCl (Ondansetron Hcl 4 Mg/2 Ml Vial) 4 mg IVPUSH Q8H PRN PRN Reason: Nausea and Vomiting Oxycodone HCl (Oxycodone Hcl Immed Release 5 Mg Tablet) 5 mg PO Q6H PRN PRN Reason: Pain, Severe (Pain Scale 7-10) Pharmacy Consult (Consult Rx Vancomycin Dosing) 1 each MISCELLANE DAILY PRN PRN Reason: Consult order Propranolol HCl (Propranolol Hcl 20 Mg Tablet) 20 mg PO BEDTIME [facility] TO [facility]; Protocol Last Admin: 08/15/21 20:30 Dose: 20 mg Documented by: HARSHA Sodium Chloride (0.9 % Sodium Chloride Flush 3 Ml Syringe) 3 ml IVFLUSH QSHIFT [facility]END[facility] TO [facility] Last Admin: 08/16/21 08:10 Dose: 3 ml Documented by: ALDO Labs CBC & Chem 7: 08/13/21 09:21 08/16/21 05:56 Labs: Laboratory Results - last 24 hr 08/15/21 08/16/21 08/16/21 12:24 05:56 05:56 Anion Gap 13 Estim Creat Clear Calc Cancelled 144.6 Estimated GFR Cancelled > 60 Random Glucose 97 Calcium 9.0 Vancomycin Trough 12.6 Microbiology Microbiology Results: Microbiology 08/14/21 15:30 Gram Stain - Final Foot Right Routine Culture - Final Assessment and Plan Plan 40-year-old male with past medical history of polysubstance abuse presents to the hospital? with complaints of skin infection his arms bilaterally found to have cellulitis 1. Cellulitis of forearms - at sites of incetions - drainage, erythema, tenderness, edema ,? mucopurulent discharge vanco tough pending -? start him on broad-spectrum IV antibiotics-vanco adjusted. right foot abcess -s/p drainage today ?consult infectious disease,follow cultures 2. Polysubstance abuse - resume methadone - care team consult 3. Tobacco use - discussed NRT - agreeable to starting on nicotine patch dvt ppx: lovenox Quality Stroke Does the patient have a stroke diagnosis?: No VTE Prior VTE?: No VTE Risk Level:: Medical - moderate - high VTE Device Contraindication: Treatment Not Indicated VTE Drug Contraindication: N/A - Med Ordered
[2021-08-16 12:48] LABS: Vancomycin Trough 16.7 mcg/mL (10.0-20.0)
--- NOTE | 2021-08-16 13:09 | PHA.PROG ---
Admission Date/Time: August 13, 2021 00:59 Indication: CELLULITUS Weight in k.862 kg Adjusted body weight in Kg: Eighty Eight body weight in K Obesity Dosing Indication % IBW: Serum Creatinine - Last 168 Hours 08/12/21 08/13/21 08/14/21 22:20 09:21 07:16 Creatinine 0.77 0.78 0.83 08/15/21 08/15/21 08/16/21 09:32 09:32 05:56 Creatinine 0.83 0.85 Cancelled 08/16/21 05:56 Creatinine 0.83 Estimated CrCl and GFR - Last 168 Hours 08/12/21 08/13/21 08/14/21 22:20 09:21 07:16 Estim Creat Clear Calc 155.9 153.9 144.6 Estimated GFR > 60 > 60 > 60 08/15/21 08/15/21 08/16/21 09:32 09:32 05:56 Estim Creat Clear Calc 144.6 141.2 Cancelled Estimated GFR > 60 > 60 Cancelled 08/16/21 05:56 Estim Creat Clear Calc 144.6 Estimated GFR > 60 Vancomycin Loading Dose: Current Vancomycin Dosing Regimen:1250 MG Q12 HOURS Vancomycin Monitoring using AUC goal of 400 - 600 range with trough as surrogate marker: Date and Time for next Vancomycin Level to be drawn: Vancomycin Trough 16.7 mcg/mL (10.0-20.0) 08/16/21 12:07 Pharmacist Comments on Vancomycin Plan: DECREASED DOSE TO 1 GRAM, TROUGH ON 08/16 1200 WAS 16.7, INCREASE FROM 12.6 YESTERDAY Vancomycin dosing will take advantage of [employer] as a clinical decision support tool that uses Bayesian modeling to calculate individual patient's pharmacokinetic parameters and forecast the patient's drug concentration time course with the target goal AUC 24 range of 400 - 600 mg/L/hr.
--- NOTE | 2021-08-16 13:34 | HE.PHANOTE ---
Vancomycin Dosing Addendum Decrease dose to 1000 mg q12h for predicted AUC of 483. Trough 16.7 ( two doses prior 12.6). Using Obese model. Will get next trough 08/17/21 @1200.
[2021-08-16] MEDS: vancomycin HCL 1,000 MG in 0.9 % Sodium Chloride 250 ML 270 MG IV (14:08)
--- NOTE | 2021-08-16 14:08 | PM.CNNEP ---
History of Present Illness Reason for Consult Consult date: 08/16/21 Chief Complaint Chief complaint: cellulitis History of Present Illness Narrative: 40-year-old male with history of IV drug use as well as hypertension presents to the hospital with multiple skin infections on his arms.? Patient reports that he injects crack cocaine on his right and left arm and noticed scabs and skin break age that was not healing and worsening over the past 1 week worsening over the past 3 days.? Patient reports that he has injected cocaine in that area in the past.? With minimal injection of heroin.? He denies any fever or chills, no chest pain, no shortness of breath, no abdominal pain nausea or vomiting, no diarrhea constipation, no urinary symptoms and no lower extremity edema.?He is known to have hypertension . He takes Propranolol. His renal functions and potassium are normal. His BP remains uncontrolled. Nephrology has been consulted to assist in his clinical care during his current hospital stay Review of Systems Review of Systems Yes all other systems are reviewed and are negative PMFSH Past Medical History Medical History Foot abscess, right Hypertension Polysubstance abuse Family History Family History Other No family history of coronary artery disease Family history: reviewed and not pertinent Surgical History Surgical History No pertinent past surgical history Social History Social History Household Members: Significant Other Housing: Condominium Do you presently have visiting nurse or other home services: No Alcohol intake: current Patient Tobacco Use Status: Current everyday Tobacco user Tobacco use type: Cigarette Cigarette Packs Per Day: 0.5 Substance Use Type: Heroin and IV Drugs service: No Current occupational status: unemployed Meds Allergies Allergy/AdvReac Type Severity Reaction Status Date / Time No Known Allergies Allergy Verified 08/08/21 17:21 Active Medications: Current Medications Acetaminophen (Acetaminophen 325 Mg Tablet) 650 mg PO Q6H PRN PRN Reason: Pain, Mild (Pain Scale 1-3) Docusate Sodium (Docusate Sodium 100 Mg Capsule) 100 mg PO DAILY PRN PRN Reason: Constipation Enoxaparin Sodium (Enoxaparin Sodium 40 Mg/0.4 Ml Syringe) 40 mg SUBCUT Q24H [facility] Last Admin: 08/16/21 06:12 Dose: 40 mg Documented by: Piperacillin Sod/Tazobactam (Sod 3.375 gm/ Sodium Chloride) 50 mls @ 100 mls/hr IV Q6H [facility] Last Infusion: 08/16/21 14:04 Dose: Infused Documented by: Vancomycin HCl 1,000 mg/ (Sodium Chloride) 270 mls @ 270 mls/hr IV Q12H [facility] Last Admin: 08/16/21 14:08 Dose: 270 mls/hr Documented by: Methadone HCl (Methadone Hcl 20 Mg/2 Ml Oral.Conc) 80 mg PO DAILY [facility] Last Admin: 08/16/21 08:12 Dose: 80 mg Documented by: Nicotine (Nicotine 14 Mg Patch.Td24) 14 mg TRANSDERMA DAILY [facility] Last Admin: 08/16/21 08:10 Dose: 14 mg Documented by: Omeprazole (Omeprazole 20 Mg Capsule.Dr) 20 mg PO DAILY [facility] Last Admin: 08/16/21 08:11 Dose: 20 mg Documented by: Ondansetron HCl (Ondansetron Hcl 4 Mg/2 Ml Vial) 4 mg IVPUSH Q8H PRN PRN Reason: Nausea and Vomiting Oxycodone HCl (Oxycodone Hcl Immed Release 5 Mg Tablet) 5 mg PO Q6H PRN PRN Reason: Pain, Severe (Pain Scale 7-10) Pharmacy Consult (Consult Rx Vancomycin Dosing) 1 each MISCELLANE DAILY PRN PRN Reason: Consult order Propranolol HCl (Propranolol Hcl 20 Mg Tablet) 20 mg PO BEDTIME [facility]; Protocol Last Admin: 08/15/21 20:30 Dose: 20 mg Documented by: Sodium Chloride (0.9 % Sodium Chloride Flush 3 Ml Syringe) 3 ml IVFLUSH QSHIFT [facility] Last Admin: 08/16/21 08:10 Dose: 3 ml Documented by: Home Medications Medication Instructions Recorded Confirmed Last Taken Type cephalexin 500 mg capsule 1 cap PO QID 08/13/21 08/13/21 08/12/21 History methadone 5 mg/5 mL oral solution 80 mg PO DAILY 08/13/21 08/13/21 08/12/21 History nicotine 21 mg/24 hr daily 1 patch TOPICAL DAILY 08/13/21 08/13/21 08/12/21 History transdermal patch omeprazole 20 mg capsule,delayed 20 mg PO DAILY 08/13/21 08/13/21 08/12/21 History release propranolol 20 mg tablet 1 tab PO BEDTIME 08/13/21 08/13/21 08/12/21 History Physical Exam Vital Signs: Last Vital Signs Temp 97 F 08/16/21 11:18 Pulse 56 08/16/21 11:18 Resp 19 08/16/21 11:18 BP 154/82 H 08/16/21 11:18 Pulse Ox 96 08/16/21 11:18 BMI result Body Mass Index 34.4 Const General: no acute distress Orientation/consciousness: patient oriented x3 Eyes EOM: EOMs intact bilaterally Neck Neck: Yes supple Resp Auscultation: diminished lung sounds Cardio Rate: regular rate GI Palpation (GI): Soft to palpation Neuro General: patient oriented x3 and moves all extremities Results Lab Results Result Diagrams: 08/13/21 09:21 08/16/21 05:56 Lab results: Chemistry 08/14/21 08/15/21 08/15/21 07:16 09:32 09:32 Sodium 140 Potassium 3.8 Carbon Dioxide 28 BUN 10 Creatinine 0.83 0.83 0.85 Calcium 9.1 08/16/21 08/16/21 05:56 05:56 Sodium 140 Potassium 4.3 Carbon Dioxide 26 BUN 12 Creatinine Cancelled 0.83 Calcium 9.0 Assessment and Plan (1) Hypertension: Qualifiers: Hypertension type: primary hypertension Qualified Code(s): I10 - Essential (primary) hypertension Status: Acute Plan Known to have hypertension H/O polysubstance Abuse On Propranolol as oupt (Unsure why he is taking it) Serum K and renal function normal Could add Amlodipine 2.5 mg daily Shall arrange office F/U when D/Tigre Procedures Date of Service Date of Service: 08/16/21
--- NOTE | 2021-08-16 14:18 | PM.DS ---
DS: Providers Provider Date of Service: 08/16/21 Date of admission: 08/13/21 00:59 Primary care physician: Unknown Physician Consults: 08/13/21 00:58 Consult to Infectious Diseases Routine Consulting Provider: Aleksandra Jimenez Reason for consultation: skin infection/cellulitis Has provider been notified: No 08/13/21 06:57 Consult to Care Team Routine Comment: Reason for consultation: polysubstance abuse 08/14/21 10:41 Consult to General Surgery Routine Consulting Provider: [facility] Reason for consultation: ivdu -? right foot abcess /bilateral arm cellulitis Has provider been notified: No 08/16/21 09:36 Consult to Nephrology Routine Consulting Provider: Pako Coronel Reason for consultation: persitent elevated blood pressure Has provider been notified: No DS: Diagnosis Discharge Diagnosis (1) Hypertension: Status: Acute DS: Summary Hospital Course Hospital Course: 40-year-old male with past medical history of IV drug use, as well as hypertension presents to the hospital with multiple skin infections on his arms.? Patient reports that he injects crack cocaine on his right and left arm and noticed scabs and skin break age that was not healing and worsening over the past 1 week worsening over the past 3 days.? Patient reports drainage from multiple scabs on his left arm.? He is also complaining of worsening swelling, redness, and pain.? Patient reports that he has injected cocaine in that area in the past.? With minimal injection of heroin.? He denies any fever or chills, no chest pain, no shortness of breath, no abdominal pain nausea or vomiting, no diarrhea constipation, no urinary symptoms and no lower extremity edema.? On arrival to the ED patient hemodynamically stable with no significant abnormal? vitals.? Labs are significant for WBC count of 9.9, hemoglobin of 12, hematocrit 37.1, platelets of 428, PT of 14, INR of 1.2, PTT of 49, CRP of 5.7, COVID-19 negative Patient underwent venous duplex studies which showed no DVT in the bilateral upper extremities. ? He underwent multiple x-rays of the hand wrist, forearm bilaterally which showed extensive soft tissue swelling. ?patient started on IV antibiotics and will be admitted for further management. Hospital course: Patient came to the hospital because of bilateral extremities upper cellulitis, also right foot abscess: Started on IV antibiotics, seen by surgery and foot abscess was drained, left arm culture is M SSA-sensitive to doxycycline, foot culture grew makes skin david: Seen by infectious disease and patient was switched to p.o. doxycycline and Augmentin she says since patient is improved. Please complete the course of p.o. antibiotics. Continue dry dressing for right foot, up with PCP outpatient. Patient has history of hypertension: Added small dose of amlodipine, patient is to follow-up out patiently with PCP/if possible nephrology will arrange their own appointment. Further management outpatient. Above management discussed with the patient in detail length he understand and in agreement with the above plan, time spent 50 minutes and 50% time spent on counseling. Significant findings: As above. Procedures performed: None. Treatment and response: As above. Complications: None. Time Spent with Patient Time attestation: Total time spent providing and/or coordinating discharge services: Discharge coordination time: Greater than 30 minutes Quality: Stroke Does the patient have a stroke diagnosis?: No Physical Exam Vital Signs: Vital Signs: Last Vital Signs Temp 97 F 08/16/21 11:18 Pulse 56 08/16/21 11:18 Resp 19 08/16/21 11:18 BP 154/82 H 08/16/21 11:18 Pulse Ox 96 08/16/21 11:18 BMI result Body Mass Index 34.4 Appearance: Alert.? Oriented X3.? not in distress.? Eyes: Pupils equal, round and reactive to light.? Sclera nonicteric.? ENT: Pharynx normal.? Moist mucous membranes. cvs: rrr, [id number] , no murmur res: clear to auscultation ,no rhonchii or wheezing abd: no rebound or guarding ,nt, bs present. ext pulses present , no cyanosis bilateral erythema seems improving , ulcers also dried up and improving ,right foot abcess s/p drainage , seems improving . neuro: axo3 , nonfocal. DS: Data Data Completed and Pending Labs on day of discharge: Laboratory Results - last 24 hr 08/16/21 08/16/21 08/16/21 05:56 05:56 12:07 Sodium 140 Potassium 4.3 Chloride 105 Carbon Dioxide 26 Anion Gap 13 BUN 12 Creatinine Cancelled 0.83 Estim Creat Clear Calc Cancelled 144.6 Estimated GFR Cancelled > 60 Random Glucose 97 Calcium 9.0 Vancomycin Trough 16.7 Discharge Plan Discharge Patient Disposition: Home, Self-Care Discharge Diagnosis: arm cellulitis , htn Referrals: Physician,Unknown J [Primary Care Provider] - 1 Week Discharge Medications: New amoxicillin-pot clavulanate 875-125 mg Tablet 875 mg PO Q12H Qty: 20 0RF amlodipine 2.5 mg Tablet 2.5 mg PO DAILY Qty: 30 0RF Protocol: Hold for SBP< HOLD for SBP < : 90 Continued propranolol 20 mg tablet 1 tab PO BEDTIME 0RF omeprazole 20 mg Capsule,Delayed Release(Dr/Ec) 20 mg PO DAILY 0RF nicotine 21 mg/24 hr patch 24 hour 1 patch topical DAILY 0RF methadone 5 mg/5 mL Solution 80 mg PO DAILY 0RF doxycycline hyclate 100 mg tablet 1 tab PO BID Qty: 20 0RF Discontinued cephalexin 500 mg capsule 1 cap PO QID 0RF Discharge Orders: Discharge Order (Routine); Ordered 08/16/21 Ordered By: Candi Smalls Diet: advance to usual diet Activity on Discharge: As tolerated Stand Alone Forms: Patient Portal Discharge page Care Plan Goals: Patient came to the hospital because of bilateral extremities upper cellulitis, also right foot abscess: Started on IV antibiotics, seen by surgery and foot abscess was drained, Seen by infectious disease and patient was switched to p.o. antibiotics she says since patient is improved. Please complete the course of p.o. antibiotics. Continue dry dressing for right foot, up with PCP outpatient. Patient has history of hypertension: Added small dose of amlodipine, patient is to follow-up out patiently with PCP/if possible nephrology will arrange their own appointment. Further management outpatient. Health Concerns: As above. Plan of Treatment: As above. Assessment: As above.
[2021-08-16] MEDS: Amoxicillin/Potassium Clav 875 MG TABLET PO (14:46)
[2021-08-16] MEDS: amLODIPine Besylate 2.5 MG TABLET PO (14:46)
== END 2021-08-16 15:52 | disposition home or self-care (01) | DRG 383 ==
LOC: HO.ED 08-13 00:51 → HO.EDOVER 08-13 01:03 → HO.S3 08-14 23:23
PROVIDERS: Physician Assistant; Admitting Provider Internal Medicine; Emergency Provider Emergency Medicine Emergency Medical Services; Visit Provider Internal Medicine
DX: L02.611 Cutaneous abscess of right foot (principal); F11.20 Opioid dependence, uncomplicated; L03.113 Cellulitis of right upper limb; L03.114 Cellulitis of left upper limb; B95.61 Methicillin susceptible Staphylococcus aureus infection as the cause of diseases classified elsewhere; Z20.822 Contact with and (suspected) exposure to COVID-19; I10 Essential (primary) hypertension; F17.210 Nicotine dependence, cigarettes, uncomplicated; Z71.6 Tobacco abuse counseling; Z79.899 Other long term (current) drug therapy
CPT/HCPCS: 36415; 73090; 73110; 73130; 73620; 80048; 80053; 80202; 82565; 83605; 85025; 85610; 85652; 85730; 86140; 87071; 87205; 87635; 93970; 96361; 96365; 96375; 99024; 99285; J1650; J1885; J1940; J2543; J3370